=== PATIENT | female | born 1950 | race Caucasian/White ===

== ENCOUNTER 2021-09-24 14:48 | Inpatient (IN) | payer MEDICARE, OTHER ==
[~2021-09-24] VITALS: Ht 160 cm; Wt 100.2 kg
--- NOTE | 2021-09-24 15:05 | NUR ---
IV LINE IS ESTABLISHED, BLOOD SPECIMEN COLLECTED AND SENT TO THE LAB. THE LINE IS SALINE LOCKED.
[2021-09-24] MEDS ORDERED: LOSA25TA27 PO (15:10)
[2021-09-24] MEDS ORDERED: CITA20TA16 PO (15:10)
[2021-09-24] MEDS ORDERED: AMLO-212 PO (15:10)
[2021-09-24] MEDS ORDERED: DOCU-141 PO (15:10)
[2021-09-24] MEDS ORDERED: DULO30CA2 PO (15:10)
[2021-09-24] MEDS ORDERED: TEMA15CA PO (15:10)
[2021-09-24] MEDS ORDERED: ATOR10TA PO (15:10)
[2021-09-24] MEDS ORDERED: HYDR-4209 PO (15:10)
--- NOTE | 2021-09-24 15:11 | NUR ---
DR BOYCE AT THE BEDSIDE
[2021-09-24] MEDS ORDERED: CLOB15OI3 TP (15:12)
[2021-09-24] MEDS ORDERED: IBUP-1955 PO (15:12)
[2021-09-24] MEDS ORDERED: HYDR50TA61 PO (15:12)
[2021-09-24] MEDS ORDERED: ONDANSETRON HCL/PF 4 MG/2 ML VIAL ONE (15:19)
[2021-09-24] MEDS ORDERED: MORPHINE SULFATE INJ 4 MG/ML DISP.SYRIN ONE (15:19)
--- NOTE | 2021-09-24 15:28 | NUR ---
X-RAY AT THE BEDSIDE
[2021-09-24] MEDS ORDERED: ONDANSETRON HCL/PF - ER 4 MG/2 ML VIAL IV ONE (15:30)
[2021-09-24] MEDS ORDERED: IV NS 0.9% 1,000 ML IV ONE (15:30)
[2021-09-24] MEDS ORDERED: MORPHINE SULFATE INJ 2 MG/ML DISP.SYRIN IV ONE (15:30)
[2021-09-24 15:35] LABS: BASOPHILS % (AUTO) 0.2 % (0.0-2.0); HEMATOCRIT 29 % (33-45); HEMOGLOBIN 9.7 g/dL (11.5-14.8); LYMPHOCYTES # (AUTO) 0.5 K/uL (0.8-4.8); LYMPHOCYTES % (AUTO) 3.2 % (20.0-44.0); MEAN CORPUSCULAR HGB CONC 33 g/dl (31.0-36.0); MEAN CORPUSCULAR VOLUME 97 fL (82-100); MONOCYTES # (AUTO) 0.7 K/uL (0.1-1.30); MONOCYTES % (AUTO) 4.4 % (2.0-12.0); NEUTROPHILS # (AUTO) 15.6 K/uL (1.8-8.9); NEUTROPHILS % (AUTO) 92.2 % (43.0-81.0); PLATELET COUNT (AUTO) 214 K/uL (150-450); WHITE BLOOD COUNT (AUTO) 16.9 K/uL (4.3-11.0)
[2021-09-24 16:05] LABS: CALCIUM, SERUM 8.2 mg/dL (8.5-10.1); CARBON DIOXIDE 25 mmol/L (21-32); CHLORIDE 105 mmol/L (98-107); CREATININE 1.4 mg/dL (0.6-1.3); GLUCOSE 156 mg/dL (74-106); POTASSIUM 4.4 mmol/L (3.5-5.1); SODIUM SERUM 136 mmol/L (136-145); UREA NITROGEN, BLOOD 33 mg/dL (7-18)
[2021-09-24 16:17] LABS: ALANINE AMINOTRANSFERASE 36 U/L (12-78); ALBUMIN 2.8 g/dL (3.4-5.0); ALKALINE PHOSPHATASE 146 U/L (46-116); ASPARTATE AMINOTRANSFERASE 40 U/L (15-37); BILIRUBIN,TOTAL 0.3 mg/dL (0.2-1.0); TOTAL PROTEIN, SERUM 6.3 g/dL (6.4-8.2)
[2021-09-24 16:18] LABS: CREATINE KINASE, TOTAL 38 U/L (26-192)
[2021-09-24 16:28] LABS: BILIRUBIN,URINE NEGATIVE (NEGATIVE); COLOR,URINE DARK YELLOW (YELLOW); LEUKOCYTE ESTERASE ,URINE SMALL (NEGATIVE); NITRITE, URINE NEGATIVE (NEGATIVE); PROTEIN,URINE 100 mg/dl (NEGATIVE); UGLUCOSE NEGATIVE (NEGATIVE); UROBILINOGEN,URINE 0.2 EU/dL (0.2)
[2021-09-24] MEDS ORDERED: ONDANSETRON HCL/PF 4 MG/2 ML VIAL IVP PRN (16:30)
[2021-09-24] MEDS ORDERED: Medication Not On Formulary EA (Hydroxyzine Hcl 50 MG) PO PRN (16:30)
[2021-09-24] MEDS ORDERED: MAG HYDROX/AL HYDROX/SIMETH 30 ML UDC PO PRN (16:30)
[2021-09-24 16:44] LABS: BACTERIA,URINE Many /HPF (None Seen); RBC,URINE 0-2 /HPF (0-2); SQUAMOUS EPITHELIAL CELL,UR Few /HPF (None Seen)
[2021-09-24] MEDS ORDERED: Z GUARD REMEDY 4 OZ OINT TP PRN (17:00)
--- NOTE | 2021-09-24 17:22 | NUR ---
ROOM 104
--- NOTE | 2021-09-24 17:54 | NUR ---
RECEIVED PATIENT FROM ER,AWAKE ALERT NO ACUTE DISTRESS,WILL ENDORSE TO NIGHT RN FOR CONTINUITY OF CARE AND ADMISSION. Addendum: 09/24/21 at 1924 by SANDEEP HOFFMAN RN ADDENDUM VS: BP 165/52, TEMP 99.3, AZ 92, O2 SAT 94%, RR 18 WT 220 LBS.
[2021-09-24 18:00] VITALS: BP 165/52
[2021-09-24 18:04] VITALS: BP 165/74
[2021-09-24] MEDS: CITALOPRAM HYDROBROMIDE 20 MG TABLET PO SCH (18:22)
[2021-09-24] MEDS: IV D5/0.45 NACL 1,000 ML IV PRN (18:26)
[2021-09-24] MEDS: ENOXAPARIN SODIUM 40 MG/0.4 ML DISP.SYRIN SQ SCH (18:26)
--- NOTE | 2021-09-24 19:30 | NUR ---
MS RN NOTE RECEIVED ENDORSEMENT FROM AM NURSE SANDEEP PT AWAKE ON BED A/O X3, ON RA TOLERATING WELL, CURRENTLY SATING AT 96%, NOTED WITH R HAND #20g RUNNING D5 1/2 NS @ 75 ML/HR, INFUSING WELL, ON TELEMONITORING CURRENTLY READING SR AT 87 BPM, PT COMPLAINING OF GENERALIZED PAIN, WILL CHECK THE CHART FOR PRN PAIN MEDS AVAILABLE AT THIS TIME, SAFETY MEASURES IN PLACE, CALL LIGHT WITHIN REACH, BED IN LOWEST AND LOCKED POSITION, WILL MONITOR CLOSELY THROUGHOUT THE SHIFT.
--- NOTE | 2021-09-24 19:35 | NUR ---
RN NOTE CALLED TO [place] IN REGARDS TO THE COMPATIBILITY OF INFUSING D5 1/2 NS TO ZITHROMAX 500 MG IV, SHE SAID OKAY TO INFUSED ALTOGETHER. WILL CONT TO MONITOR.
[2021-09-24] MEDS: ZITHROMAX 500 MG/250 ML D5W IV SCH ×2 (19:36)
--- NOTE | 2021-09-24 19:45 | NUR ---
RN NOTE PT GIVEN NORCO PRN MEDS FOR PAIN. PT RATED 9/10 FROM PAIN SCALE. ABX IV HANGED ORDERED, COMFORT MEASURES PROVIDED, WILL CONT TO MONITOR.
[2021-09-24] MEDS: HYDROCODONE/APAP 5/325MG TABLET PO PRN (19:54)
[2021-09-24] MEDS ORDERED: CEFTRIAXONE 1 G in IV D5W 50 ML IV SCH (20:00)
[2021-09-24 22:00] VITALS: BP 151/69
[2021-09-24] MEDS ORDERED: ZOLPIDEM TARTRATE 5 MG TABLET PO PRN (22:00)
[2021-09-24] MEDS ORDERED: MAGNESIUM HYDROXIDE 30 ML UDC PO PRN (22:00)
[2021-09-24] MEDS: ATORVASTATIN 10 MG TABLET PO SCH (22:08)
[2021-09-24] MEDS: TEMAZEPAM 15 MG CAPSULE PO SCH (22:08)
[2021-09-24] MEDS: LOSARTAN POTASSIUM 25 MG TABLET PO SCH (22:09)
--- NOTE | 2021-09-25 01:30 | NUR ---
RN NOTE PT NOTED WITH LOW GRADE FEVER AT 100.4. COOLING MEASURES DONE, TYLENOL GIVEN PRN ORDER. KEPT DRY AND CLEAN, WILL CONT TO MONITOR.
[2021-09-25] MEDS: ACETAMINOPHEN 325 MG TABLET PO PRN ×2 (01:34→12:40)
--- NOTE | 2021-09-25 02:00 | NUR ---
RN NOTE RECHECKED TEMPERATURE AT 99.3. ALL NEEDS ATTENDED, WILL CONT TO MONITOR
[2021-09-25 06:00] VITALS: BP 110/53
[2021-09-25 06:03] LABS: BASOPHILS % (AUTO) 0.2 % (0.0-2.0); EOSINOPHILS % (AUTO) 0.1 % (0.0-6.0); HEMATOCRIT 27 % (33-45); HEMOGLOBIN 9.1 g/dL (11.5-14.8); LYMPHOCYTES # (AUTO) 0.7 K/uL (0.8-4.8); LYMPHOCYTES % (AUTO) 7.1 % (20.0-44.0); MEAN CORPUSCULAR HGB CONC 34 g/dl (31.0-36.0); MEAN CORPUSCULAR VOLUME 97 fL (82-100); MONOCYTES # (AUTO) 0.7 K/uL (0.1-1.30); NEUTROPHILS # (AUTO) 8.7 K/uL (1.8-8.9); NEUTROPHILS % (AUTO) 85.6 % (43.0-81.0); PLATELET COUNT (AUTO) 168 K/uL (150-450); RED BLOOD CELL COUNT(AUTO) 2.76 MIL/uL (4.0-5.2); WHITE BLOOD COUNT (AUTO) 10.1 K/uL (4.3-11.0)
[2021-09-25 06:24] LABS: CALCIUM, SERUM 8.3 mg/dL (8.5-10.1); CARBON DIOXIDE 27 mmol/L (21-32); CHLORIDE 105 mmol/L (98-107); CREATININE 1.3 mg/dL (0.6-1.3); GLUCOSE 157 mg/dL (74-106); MAGNESIUM 1.9 mg/dL (1.8-2.4); PHOSPHORUS 2.9 mg/dL (2.5-4.9); POTASSIUM 4.2 mmol/L (3.5-5.1); SODIUM SERUM 137 mmol/L (136-145); UREA NITROGEN, BLOOD 30 mg/dL (7-18)
--- NOTE | 2021-09-25 06:39 | NUR ---
MS RN NOTE PT AWAKE ON BED A/O X3, ON RA TOLERATING WELL, CURRENTLY SATING AT 95%, NOTED WITH R HAND #20g RUNNING D5 1/2 NS @ 75 ML/HR, INFUSING WELL, INITIAL PHYSICAL ASSESSMENT DONE WITH SKIN INTACT, ALL DUE MEDS GIVEN, COOLING MEASURES DONE, SAFETY PRECAUTIONS IN PLACE, CALL LIGHT WITHIN REACH, BED IN LOWEST AND LOCKED POSITION, WILL ENDORSE TO AM SHIFT FOR LEEANN.
--- NOTE | 2021-09-25 07:25 | NUR ---
RN OPENING NOTES RECEIVED PATIENT IN BED WITH EYES CLOSED, ABLE TO BE WAKEN. A/O X3. ON RA TOLERATING WELL WITH NO SOB NOTED. R HAND G#20 RUNNING D5 1/2 NS @ 75 ML/HR, INFUSING WELL. NO COMPLAINTS AT THIS TIME. SAFETY PRECAUTIONS IN PLACE, CALL LIGHT WITHIN REACH, BED IN LOWEST AND LOCKED POSITION, WILL CONTINUE TO MONITOR
[2021-09-25] MEDS: CEFTRIAXONE 1 G in IV D5W 50 ML IV SCH (08:50)
[2021-09-25] MEDS: AMLODIPINE BESYLATE 5 MG TABLET PO SCH (08:50)
[2021-09-25] MEDS: PANTOPRAZOLE 40 MG TABLET.DR PO SCH (08:50)
[2021-09-25] MEDS: DULOXETINE HCL 30 MG CAPSULE.DR PO SCH (08:50)
[2021-09-25] MEDS: DOCUSATE SODIUM 250 MG CAPSULE PO SCH (08:50)
[2021-09-25] MEDS ORDERED: AZITHROMYCIN 500 MG in IV D5W 250 ML IV SCH (09:00)
[2021-09-25] MEDS ORDERED: CEFTRIAXONE 1 G VIAL IM SCH (09:00)
[2021-09-25] MEDS: IV D5/0.45 NACL 1,000 ML IV PRN (12:16)
[2021-09-25] MEDS: ONDANSETRON HCL/PF 4 MG/2 ML VIAL IV PRN ×2 (12:29→20:12)
--- NOTE | 2021-09-25 12:41 | NUR ---
RN NOTES PATIENT TEMP 100.8 AXILLARY. COOLING MEASURES IN PLACE. COOL WASH CLOTHES AND MINIMAL LAYERS. ACETAMINOPHEN GIVEN. WILL MONITOR TEMP
[2021-09-25 14:00] VITALS: BP 139/55
[2021-09-25] MEDS: ENOXAPARIN SODIUM 40 MG/0.4 ML DISP.SYRIN SQ SCH (17:56)
[2021-09-25] MEDS: CITALOPRAM HYDROBROMIDE 20 MG TABLET PO SCH (18:09)
--- NOTE | 2021-09-25 19:05 | NUR ---
RN NOTES PATIENT IN BED COMFORTABLE AT THIS TIME. ON RA WITH NO SOB NOTED. DENIES PAIN AT THIS TIME. SAFETY MEASURES IN PLACE. WILL ENDORSE TO WING SCORER NURSE FOR LEEANN
--- NOTE | 2021-09-25 19:20 | NUR ---
RN NOTES RECEIVED CARE OF PATIENT FROM AM NURSE. PATIENT IN BED, A/O X4, ABLE TO MAKE NEEDS KNOWN. PATIENT COMPLAINS OF GENERALIZED PAIN AND NAUSEA. NON-PHARMACOLOGIC PAIN MANAGEMENT INEFFECTIVE. WILL ADMINISTER MORPHINE PRN AND ZOFRAN PRN FOR PAIN AND NAUSEA. PATIENT ON ROOM AIR, O2 SAT 97%, NO SOB NOTED. PATIENT NOTED WITH IV ACCESS ON R HAND #20 RUNNING WITH D51/2 NS AT 75 ML/HR, IV ACCESS PATENT. NO SIGNIFICANT FINDINGS UPON INITIAL NURSING ASSESSMENTS. SAFETY PRECAUTIONS IN PLACE, CALL LIGHT WITHIN REACH, BED IN LOWEST AND LOCKED POSITION, WILL CONTINUE TO MONITOR.
[2021-09-25] MEDS: ZITHROMAX 500 MG/250 ML D5W IV SCH ×2 (20:10)
[2021-09-25] MEDS: MORPHINE SULFATE INJ 2 MG/ML DISP.SYRIN IV PRN (20:12)
[2021-09-25] MEDS: TEMAZEPAM 15 MG CAPSULE PO SCH (21:16)
[2021-09-25] MEDS: ATORVASTATIN 10 MG TABLET PO SCH (21:16)
[2021-09-25] MEDS: LOSARTAN POTASSIUM 25 MG TABLET PO SCH (21:17)
[2021-09-25 22:00] VITALS: BP 167/22
[2021-09-26 04:00] VITALS: BP 138/98
[2021-09-26] MEDS: MORPHINE SULFATE INJ 2 MG/ML DISP.SYRIN IV PRN ×3 (04:33→21:09)
[2021-09-26] MEDS: ONDANSETRON HCL/PF 4 MG/2 ML VIAL IV PRN ×2 (04:38→14:30)
[2021-09-26 05:57] LABS: BASOPHILS % (AUTO) 0.3 % (0.0-2.0); EOSINOPHILS % (AUTO) 0.4 % (0.0-6.0); HEMATOCRIT 26 % (33-45); HEMOGLOBIN 9.2 g/dL (11.5-14.8); LYMPHOCYTES # (AUTO) 1.4 K/uL (0.8-4.8); LYMPHOCYTES % (AUTO) 17.7 % (20.0-44.0); MEAN CORPUSCULAR HGB CONC 35 g/dl (31.0-36.0); MEAN CORPUSCULAR VOLUME 96 fL (82-100); MONOCYTES # (AUTO) 0.7 K/uL (0.1-1.30); MONOCYTES % (AUTO) 9.4 % (2.0-12.0); NEUTROPHILS # (AUTO) 5.6 K/uL (1.8-8.9); NEUTROPHILS % (AUTO) 72.2 % (43.0-81.0); PLATELET COUNT (AUTO) 162 K/uL (150-450); RED BLOOD CELL COUNT(AUTO) 2.73 MIL/uL (4.0-5.2); WHITE BLOOD COUNT (AUTO) 7.7 K/uL (4.3-11.0)
--- NOTE | 2021-09-26 06:19 | NUR ---
RN CLOSING NOTES WILL ENDORSE CARE OF PATIENT TO AM NURSE. NO SIGNIFICANT FINDINGS UPON ALL NURSING ASSESSMENTS. ALL PATIENT NEEDS MET THOUGHT SHIFT. PAIN MANAGED. SAFETY MEASURES KEPT IN PLACE. WILL ENDORSE TO AM NURSE FOR LEEANN.
[2021-09-26 07:01] LABS: CALCIUM, SERUM 8.1 mg/dL (8.5-10.1); CARBON DIOXIDE 26 mmol/L (21-32); CHLORIDE 104 mmol/L (98-107); CREATININE 1.1 mg/dL (0.6-1.3); GLUCOSE 124 mg/dL (74-106); MAGNESIUM 1.8 mg/dL (1.8-2.4); POTASSIUM 3.9 mmol/L (3.5-5.1); SODIUM SERUM 136 mmol/L (136-145); UREA NITROGEN, BLOOD 22 mg/dL (7-18)
--- NOTE | 2021-09-26 07:30 | NUR ---
RN OPENING NOTE PATIENT IS IN BED AWAKE, ALERT, ORIENTED X4. ON ROOM AIR WITH OXYGEN SATURATION AT 97%. WITH RIGHT HAND SALINE LOCK GAUGE 20,INTACT AND PATENT. DENIES PAIN OR NAUSEA AND NOT IN ANY FORM OF DISTRESS. BED IS LOCKED IN LOWEST POSITION, 3 SIDE RAILS UP, CALL LIGHT WITHIN REACH. WILL CONTINUE TO MONITOR THROUGHOUT SHIFT.
[2021-09-26] MEDS: PANTOPRAZOLE 40 MG TABLET.DR PO SCH (08:31)
[2021-09-26] MEDS: DULOXETINE HCL 30 MG CAPSULE.DR PO SCH (08:31)
[2021-09-26] MEDS: AMLODIPINE BESYLATE 5 MG TABLET PO SCH (08:32)
[2021-09-26] MEDS: DOCUSATE SODIUM 250 MG CAPSULE PO SCH (08:32)
[2021-09-26] MEDS: CEFTRIAXONE 1 G in IV D5W 50 ML IV SCH (08:33)
[2021-09-26 12:00] VITALS: BP 140/57
[2021-09-26] MEDS: CITALOPRAM HYDROBROMIDE 20 MG TABLET PO SCH (17:07)
[2021-09-26] MEDS: ENOXAPARIN SODIUM 40 MG/0.4 ML DISP.SYRIN SQ SCH (17:09)
--- NOTE | 2021-09-26 18:48 | NUR ---
RN CLOSING NOTE PATIENT IS IN BED AWAKE, ALERT, ORIENTED X4. ON ROOM AIR WITH OXYGEN SATURATION AT 97%. WITH RIGHT HAND SALINE LOCK GAUGE 20,INTACT AND PATENT. VERBALIZES RELIEF FROM NAUSEA AND PAIN AFTER GIVING PRN MEDS FOR NAUSEA AND PAIN. NOT IN ANY FORM OF DISTRESS. BED IS LOCKED IN LOWEST POSITION, 3 SIDE RAILS UP, CALL LIGHT WITHIN REACH. WILL ENDORSE TO BOAT PATCHER PLASTIC NURSE..
--- NOTE | 2021-09-26 19:30 | NUR ---
RN OPENING NOTE RECEIVED PATIENT IN BED, A/O X 4, ABLE TO MAKE NEEDS KNOWN. ON ROOM AIR, TOLERATING WELL, O2 SAT 97%, NO SOB NOTED. NO S/SX OF ACUTE DISTRESS NOTED AT THIS TIME. NOTED WITH IV ACCESS ON R HAND #20g RUNNING NS TKO, PATENT AND INTACT. NO SIGNIFICANT FINDINGS UPON INITIAL NURSING ASSESSMENTS. ALL SAFETY PRECAUTIONS IN PLACE, BED LOCKED, IN LOWEST POSITION, CALL LIGHT WITHIN REACH. WILL CONTINUE TO MONITOR FOR ANY CHANGES.
[2021-09-26 20:00] VITALS: BP 156/62
[2021-09-26] MEDS: ZITHROMAX 500 MG/250 ML D5W IV SCH ×2 (20:13)
[2021-09-26] MEDS: ATORVASTATIN 10 MG TABLET PO SCH (21:02)
[2021-09-26] MEDS: TEMAZEPAM 15 MG CAPSULE PO SCH (21:02)
[2021-09-26] MEDS: LOSARTAN POTASSIUM 25 MG TABLET PO SCH (21:03)
[2021-09-26] MEDS: MEROPENEM 1 G in IV NS 0.9% 100 ML IV SCH (21:03)
[2021-09-27 04:00] VITALS: BP 141/52
--- NOTE | 2021-09-27 06:25 | NUR ---
RN CLOSING NOTES NO SIGNIFICANT CHANGES THROUGHOUT THE SHIFT. PT REMAINED STABLE AFTER ALL NURSING INTERVENTIONS. ALL NEEDS MET. ALL DUE MEDS GIVEN. KEPT PT CLEAN AND DRY. ALL VS WNL. PT IS AFEBRILE. ALL SAFETY MEASURES IMPLEMENTED: BED LOCKED IN LOWEST POSITION. BED ALARM ON. CALL LIGHT WITHIN REACH. .WILL ENDORSE CARE OF PATIENT TO AM NURSE FOR LEEANN.
--- NOTE | 2021-09-27 07:37 | NUR ---
RN OPENING NOTE RECEIVED PATIENT AWAKE IN BED . PATIENT IS ALERT, ORIENTED X3-4. ON ROOM AIR WITH OXYGEN SATURATION AT 94%. NO PAIN NOTED. NO SOB NOTED. NO DISTRESS NOTED. RIGHT HAND SALINE LOCK GAUGE 20,INTACT AND PATENT. DENIES NAUSEA . ALL SAFETY MEASURES IN PLACE.BED IS LOCKED IN LOWEST POSITION, 3 SIDE RAILS UP, CALL LIGHT AND TABLE WITHIN REACH. WILL CONTINUE TO MONITOR THROUGHOUT SHIFT.
[2021-09-27] MEDS: PANTOPRAZOLE 40 MG TABLET.DR PO SCH (07:51)
[2021-09-27] MEDS: DOCUSATE SODIUM 250 MG CAPSULE PO SCH (08:30)
[2021-09-27] MEDS: DULOXETINE HCL 30 MG CAPSULE.DR PO SCH (08:31)
[2021-09-27] MEDS: AMLODIPINE BESYLATE 5 MG TABLET PO SCH (08:31)
[2021-09-27] MEDS: MEROPENEM 1 G in IV NS 0.9% 100 ML IV SCH ×2 (09:43→21:05)
[2021-09-27] MEDS: MORPHINE SULFATE INJ 2 MG/ML DISP.SYRIN IV PRN ×2 (11:50→18:19)
[2021-09-27 12:00] VITALS: BP 160/65
[2021-09-27] MEDS: ENOXAPARIN SODIUM 40 MG/0.4 ML DISP.SYRIN SQ SCH (16:20)
[2021-09-27] MEDS: CITALOPRAM HYDROBROMIDE 20 MG TABLET PO SCH (17:33)
--- NOTE | 2021-09-27 18:52 | NUR ---
RN CLOSING NOTE PATIENT AWAKE IN BED . PATIENT IS ALERT, ORIENTED X3-4. ON ROOM AIR WITH OXYGEN SATURATION AT 95%. NO PAIN NOTED. NO SOB NOTED. NO DISTRESS NOTED. RIGHT HAND SALINE LOCK GAUGE 20,INTACT AND PATENT. DENIES NAUSEA . ALL DUE MEDS GIVEN ORDERED.ALL SAFETY MEASURES IN PLACE.BED IS LOCKED IN LOWEST POSITION, 3 SIDE RAILS UP, CALL LIGHT AND TABLE WITHIN REACH. WILL ENDORSE FOR LEEANN..
[2021-09-27 20:00] VITALS: BP 131/50
--- NOTE | 2021-09-27 20:00 | NUR ---
MS RN NOTES RECEIVED PTS IN BED AWAKE ALERT X4 ABLE TO MAKE NEEDS KNOWN. V/S STABLE AFEBRILE ON R/A SATING 97%PATIENT COMPLAINS OF GENERALIZED PAIN IBUPROFEN ORDERED GIVEN WITH EFFECT .NO SOB NO DISTRESS NOTED PATIENT ON ROOM AIR, O2 SAT 97%, NO SOB NOTED. IV ACCESS ON REINSERTED L HAND #22 INTACT AND PATENT ACCESS PATENT. NO SIGNIFICANT FINDINGS UPON INITIAL NURSING ASSESSMENTS. SAFETY PRECAUTIONS IN PLACE, CALL LIGHT WITHIN REACH, BED IN LOWEST AND LOCKED POSITION, WILL CONTINUE TO MONITOR. ALL DUE MEDS GIVEN INCLUDING IV ANTIBIOTIC WIT NO SIDE EFFECT NOTED.
[2021-09-27] MEDS: ZITHROMAX 500 MG/250 ML D5W IV SCH ×2 (20:16)
[2021-09-27] MEDS: IBUPROFEN 600 MG TABLET PO PRN (20:45)
[2021-09-27] MEDS: LOSARTAN POTASSIUM 25 MG TABLET PO SCH (21:06)
[2021-09-27] MEDS: ATORVASTATIN 10 MG TABLET PO SCH (21:06)
[2021-09-27] MEDS: TEMAZEPAM 15 MG CAPSULE PO SCH (21:06)
[2021-09-28] MEDS: HYDROCODONE/APAP 5/325MG TABLET PO PRN ×2 (00:32→20:34)
[2021-09-28] MEDS: hydrOXYzine 10 MG TABLET PO PRN ×2 (00:33→16:05)
[2021-09-28 04:00] VITALS: BP 142/55
[2021-09-28 05:48] LABS: BASOPHILS % (AUTO) 0.5 % (0.0-2.0); EOSINOPHILS % (AUTO) 6.8 % (0.0-6.0); HEMATOCRIT 26 % (33-45); HEMOGLOBIN 8.7 g/dL (11.5-14.8); LYMPHOCYTES % (AUTO) 36.1 % (20.0-44.0); MEAN CORPUSCULAR HGB CONC 34 g/dl (31.0-36.0); MEAN CORPUSCULAR VOLUME 97 fL (82-100); MONOCYTES # (AUTO) 0.7 K/uL (0.1-1.30); MONOCYTES % (AUTO) 11.9 % (2.0-12.0); NEUTROPHILS # (AUTO) 2.5 K/uL (1.8-8.9); NEUTROPHILS % (AUTO) 44.7 % (43.0-81.0); PLATELET COUNT (AUTO) 197 K/uL (150-450); RED BLOOD CELL COUNT(AUTO) 2.63 MIL/uL (4.0-5.2); WHITE BLOOD COUNT (AUTO) 5.5 K/uL (4.3-11.0)
[2021-09-28 05:57] LABS: CARBON DIOXIDE 31 mmol/L (21-32); CHLORIDE 108 mmol/L (98-107); CREATININE 1.2 mg/dL (0.6-1.3); GLUCOSE 95 mg/dL (74-106); POTASSIUM 3.9 mmol/L (3.5-5.1); SODIUM SERUM 142 mmol/L (136-145); UREA NITROGEN, BLOOD 17 mg/dL (7-18)
--- NOTE | 2021-09-28 07:29 | NUR ---
ms rnnotes endorse to rn day shift ham for continuity of care
--- NOTE | 2021-09-28 07:57 | NUR ---
RN NOTE RECEIVED PT ASLEEP IN BED. ALERT AND RESPONSIVE. IN ROOM AIR. NOT IN DISTRESS. IV ACCESS ON L HAND G 22 WITH NO FLUIDS RUNNING. SAFETY MEASURES IN PLACE. WILL CONTINUE TO MONITOR.
[2021-09-28] MEDS: PANTOPRAZOLE 40 MG TABLET.DR PO SCH (08:48)
[2021-09-28] MEDS: MEROPENEM 1 G in IV NS 0.9% 100 ML IV SCH ×2 (08:48→22:04)
[2021-09-28] MEDS: DULOXETINE HCL 30 MG CAPSULE.DR PO SCH (08:49)
[2021-09-28] MEDS: DOCUSATE SODIUM 250 MG CAPSULE PO SCH (08:49)
[2021-09-28] MEDS: AMLODIPINE BESYLATE 5 MG TABLET PO SCH (08:49)
[2021-09-28 12:00] VITALS: BP 140/62
[2021-09-28] MEDS: IBUPROFEN 600 MG TABLET PO PRN (15:58)
[2021-09-28] MEDS ORDERED: ENSURE ENLIVE 237 ML LIQUID (VANILLA) PO SCH (17:00)
[2021-09-28] MEDS: CITALOPRAM HYDROBROMIDE 20 MG TABLET PO SCH (17:21)
[2021-09-28] MEDS: ENOXAPARIN SODIUM 40 MG/0.4 ML DISP.SYRIN SQ SCH (17:22)
[2021-09-28] MEDS: ENSURE ENLIVE CHOC 237 ML CAN PO SCH (17:22)
--- NOTE | 2021-09-28 18:44 | NUR ---
RN NOTE PT RESTING IN BED. AWAKE, ALERT AND RESPONSIVE. IN ROOM AIR. NOT IN DISTRESS. IV ACCESS ON L HAND G 22 WITH NO FLUIDS RUNNING. SAFETY MEASURES IN PLACE. DUE MEDS TAKEN. NEEDS ATTENDED. AM CARE DONE. WILL CONTINUE TO MONITOR AND ENDORSE TO NEXT SHIFT.
[2021-09-28 20:00] VITALS: BP 145/61
--- NOTE | 2021-09-28 20:01 | NUR ---
MS FERMIN Opening Note Pt received in bed awake, A&O x4, calm, cooperative, able to make needs known. Pt on RA with O2sat currently at 95%; no s/s of resp distress, no SOB, non-labored and equal breathing; appears comfortable. VSS, will monitor as needed. Pt noted to have left hand IV access 22G with NS TKO at 10 ml/hr; no s/s of infiltration, flushes easily. Bed in lowest position, call light within reach, side rails up x3. Will continue to monitor throughout the night. Addendum: 09/29/21 at 0221 by PRINCESS TONY FERMIN NS TKO at 5 ml/hr
[2021-09-28] MEDS: ZITHROMAX 500 MG/250 ML D5W IV SCH ×2 (20:34)
--- NOTE | 2021-09-28 20:42 | NUR ---
RN Note Pt complains of 8/10 pain on her legs and back that's described as sharp. Pt requests for [place]. Pt given 1 tablet of [place] 5/325 mg. Will monitor for effectiveness.
[2021-09-28] MEDS: ATORVASTATIN 10 MG TABLET PO SCH (22:04)
[2021-09-28] MEDS: TEMAZEPAM 15 MG CAPSULE PO SCH (22:05)
[2021-09-28] MEDS: LOSARTAN POTASSIUM 25 MG TABLET PO SCH (22:05)
[2021-09-29] MEDS: IBUPROFEN 600 MG TABLET PO PRN ×2 (03:11→09:44)
--- NOTE | 2021-09-29 03:11 | NUR ---
RN Note Pt reports of a headache that's rated as a 7/10; pain is described as throbbing. Pt given Ibuprofen 600 mg. Will monitor for effectiveness.
--- NOTE | 2021-09-29 03:12 | NUR ---
RN Note Pt's left hand 22G IV access d/c'd. New IV access established 20G on left wrist with NS TKO running at 5 ml/hr.
[2021-09-29 04:00] VITALS: BP 147/47
--- NOTE | 2021-09-29 06:54 | NUR ---
MS RN Closing Note Note Pt in bed asleep; A&O x4, calm, cooperative, able to make needs known. Pt slept well throughout the night. Pt remains on RA with O2sat ranging from 95%-96%; no s/s of resp distress, no SOB, non-labored and equal breathing; appears comfortable. VSS throughout night; no significant findings. Left hand IV access 22G d/c'd; new IV access established on left wrist 20G with NS TKO at 5 ml/hr; no s/s of infiltration, flushes easily. All due meds and fluids given throughout the night. Bed in lowest position, call light within reach, side rails up x3. Will endorse to dayshift nurse to continue care.
[2021-09-29] MEDS: MEROPENEM 1 G in IV NS 0.9% 100 ML IV SCH ×2 (08:28→22:07)
[2021-09-29] MEDS: DOCUSATE SODIUM 250 MG CAPSULE PO SCH (08:28)
[2021-09-29] MEDS: DULOXETINE HCL 30 MG CAPSULE.DR PO SCH (08:29)
[2021-09-29] MEDS: PANTOPRAZOLE 40 MG TABLET.DR PO SCH (08:29)
[2021-09-29] MEDS: AMLODIPINE BESYLATE 5 MG TABLET PO SCH (08:29)
[2021-09-29] MEDS: ENSURE ENLIVE CHOC 237 ML CAN PO SCH ×2 (08:38→17:09)
[2021-09-29] MEDS: hydrOXYzine 10 MG TABLET PO PRN (09:44)
--- NOTE | 2021-09-29 11:14 | NUR ---
RN NOTE RECEIVED PT ASLEEP IN BED. ALERT AND RESPONSIVE. IN ROOM AIR. NOT IN DISTRESS. IV ACCESS ON L WRIST G 22 WITH NO FLUIDS RUNNING. SAFETY MEASURES IN PLACE. WILL CONTINUE TO MONITOR.
[2021-09-29 12:00] VITALS: BP 150/61
[2021-09-29] MEDS: ENOXAPARIN SODIUM 40 MG/0.4 ML DISP.SYRIN SQ SCH (17:08)
[2021-09-29] MEDS: CITALOPRAM HYDROBROMIDE 20 MG TABLET PO SCH (17:08)
--- NOTE | 2021-09-29 19:16 | NUR ---
RN NOTE PT RESTING IN BED. AWAKE, ALERT AND RESPONSIVE. IN ROOM AIR. NOT IN DISTRESS. IV ACCESS ON L HAND G 22 WITH NO FLUIDS RUNNING. SAFETY MEASURES IN PLACE. DUE MEDS TAKEN. NEEDS ATTENDED. AM/PM CARE DONE. WILL CONTINUE TO MONITOR AND ENDORSE TO NEXT SHIFT.
[2021-09-29 20:00] VITALS: BP 150/66
--- NOTE | 2021-09-29 21:30 | NUR ---
MS RN Opening Note Pt in bed awake, A&O x4, calm, cooperative. Pt on RA with O2sat in high 90s; no s/s of resp distress, no SOB, non-labored and equal breathing; appears comfortable. VSS at the moment, will monitor as needed. IV access 20G on left wrist with NS TKO at 10 ml/hr; no s/s of infiltration, flushes easily. Bed in lowest position, call light within reach, side rails up x3. Will continue to monitor throughout the night.
[2021-09-29] MEDS: ATORVASTATIN 10 MG TABLET PO SCH (22:07)
[2021-09-29] MEDS: LOSARTAN POTASSIUM 25 MG TABLET PO SCH (22:07)
[2021-09-29] MEDS: TEMAZEPAM 15 MG CAPSULE PO SCH (22:07)
[2021-09-30] MEDS: IBUPROFEN 600 MG TABLET PO PRN ×2 (02:16→22:39)
--- NOTE | 2021-09-30 02:17 | NUR ---
RN Note Pt complains of 6-7/10 joint pain that's described as aching; pt requests for Ibuprofen. Pt administered ibuprofen 600 mg. Will monitor for effectiveness.
[2021-09-30 04:00] VITALS: BP 147/59
--- NOTE | 2021-09-30 07:15 | NUR ---
MS RN Opening Note Pt in bed awake, A&O x4, calm, cooperative. Pt on RA with O2sat in high 90s; no s/s of resp distress, no SOB, non-labored and equal breathing; appears comfortable. VS at the moment, will monitor as needed. IV access 20G on left wrist with NS TKO at 10 ml/hr; no s/s of infiltration, flushes easily. Bed in lowest position, call light within reach, side rails up x3. Will continue to monitor throughout the night
--- NOTE | 2021-09-30 07:17 | NUR ---
MS RN Closing Note Note Pt in bed asleep; slept well throughout night; A&O x4, calm, cooperative. Pt remains on RA with O2sat ranging from 92%-94%; no s/s of resp distress, no SOB, non-labored and equal breathing; appears comfortable. VSS throughout night; no changes to pt's condition. left wrist 20G with NS TKO at 5 ml/hr; no s/s of infiltration, flushes easily. All due meds and fluids given throughout the night. Bed in lowest position, call light within reach, side rails up x3. Will endorse to dayshift nurse to continue care.
[2021-09-30] MEDS: PANTOPRAZOLE 40 MG TABLET.DR PO SCH (08:13)
[2021-09-30] MEDS: AMLODIPINE BESYLATE 5 MG TABLET PO SCH (09:38)
[2021-09-30] MEDS: DOCUSATE SODIUM 250 MG CAPSULE PO SCH (09:38)
[2021-09-30] MEDS: DULOXETINE HCL 30 MG CAPSULE.DR PO SCH (09:39)
[2021-09-30] MEDS: MEROPENEM 1 G in IV NS 0.9% 100 ML IV SCH ×2 (09:46→22:45)
[2021-09-30] MEDS: ENSURE ENLIVE CHOC 237 ML CAN PO SCH ×2 (09:46→17:39)
--- NOTE | 2021-09-30 10:00 | NUR ---
RN notes Patient found with IV catheter removed from the site
--- NOTE | 2021-09-30 12:00 | NUR ---
RN note New line started 22 G started on Left hand, patient and flushes with easy
[2021-09-30 16:00] VITALS: BP 152/56
[2021-09-30] MEDS: ENOXAPARIN SODIUM 40 MG/0.4 ML DISP.SYRIN SQ SCH (17:39)
[2021-09-30] MEDS: CITALOPRAM HYDROBROMIDE 20 MG TABLET PO SCH (17:42)
--- NOTE | 2021-09-30 19:14 | NUR ---
RN opening notes Pt received bed awake, A&O x4, calm and following directions. Pt on RA with O2sat in high 90s; no s/s of resp distress breathing is regular and non labored; appears comfortable. VSS at the moment, will monitor as needed. IV access 20G on left wrist with NS TKO at 10 ml/hr; no s/s of infiltration, flushes easily. Bed in lowest position, call light within reach, side rails up x3. Will continue to monitor throughout the night.
--- NOTE | 2021-09-30 19:23 | NUR ---
RN closing notes Pt in bed watching TV; A&O x4, calm, cooperative, able to make needs known. Pt was awake and active during the day. Pt remains on RA with O2sat ranging from 95%-96%; no s/s of resp distress, no SOB, non-labored and equal breathing; appears comfortable. VSS throughout night; no significant findings. Left hand IV access 22G started; no s/s of infiltration, flushes easily. All due meds and fluids given. Bed in lowest position, call light within reach, side rails up x3. Will endorse to dayshift nurse to continue care.
[2021-09-30 20:00] VITALS: BP 130/69
--- NOTE | 2021-09-30 20:00 | NUR ---
RECEIVED PATIENT AWSKE ALERT AND IN NO DISTRESS. CALL LIGHT IN REACD BED IN LOWEST POSITION SIDE RAILS UP. SALINE LOCK L HAND IS INTACT AND PATENT. PATIENT OFFERED NO COMPLAIN.
[2021-09-30] MEDS: LOSARTAN POTASSIUM 25 MG TABLET PO SCH (22:40)
[2021-09-30] MEDS: TEMAZEPAM 15 MG CAPSULE PO SCH (22:40)
[2021-09-30] MEDS: ATORVASTATIN 10 MG TABLET PO SCH (22:59)
[2021-10-01] VITALS: BP 130/69
--- NOTE | 2021-10-01 00:30 | NUR ---
MOTRIN ADMINISTERED FO C/O HEADACHE. WITH EFFECTIVENESS, PT IS ASLEEP .
--- NOTE | 2021-10-01 07:29 | NUR ---
RN OPENING NOTE RECEIVED PT IN BED AWAKE. A/O X4, ABLE TO MAKE NEEDS KNOWN. ON ROOM AIR, TOLERATING WELL. NOT IN ANY SIGN OF RESPIRATORY DISTRESS. IV ACCESS IN LEFT HAND INTACT AND PATENT. SAFETY MEASURES IN PLACE: BED AT LOWEST AND LOCKED POSITION, SIDE RAILS UPX2, CALL LIGHT WITHIN EASY REACH. WILL CONTINUE TO MONITOR PT.
[2021-10-01 08:00] VITALS: BP 155/55
[2021-10-01] MEDS: DULOXETINE HCL 30 MG CAPSULE.DR PO SCH (08:08)
[2021-10-01] MEDS: PANTOPRAZOLE 40 MG TABLET.DR PO SCH (08:09)
[2021-10-01] MEDS: ENSURE ENLIVE CHOC 237 ML CAN PO SCH ×2 (08:13→12:02)
[2021-10-01 08:15] VITALS: BP 155/55
[2021-10-01] MEDS: AMLODIPINE BESYLATE 5 MG TABLET PO SCH (08:15)
[2021-10-01] MEDS: MEROPENEM 1 G in IV NS 0.9% 100 ML IV SCH (09:40)
[2021-10-01] MEDS: DOCUSATE SODIUM 250 MG CAPSULE PO SCH (09:41)
--- NOTE | 2021-10-01 15:18 | NUR ---
HOMOGENIZER OPERATOR NOTES PT DISCHARGED TO [facility] IN STABLE CONDITION. PT A/O X4, ABLE TO MAKE NEEDS KNOWN. ON RA, TOLERATING WELL, WITH SPO2 AT 96%. BREATHING EVEN AND UNLABORED. NOT IN ANY SIGN OF RESPIRATORY DISTRESS. VITAL SIGNS TAKEN, STABLE, AND RECORDED. SKIN IS INTACT. NO SKN IMPAIREMENTS NOTED. ALL BELONGINGS ACCOUNTED FOR. ALL DISCHARGED INSTRUCTIONS AND HEALTH TEACHINGS PROVIDED TO PT AND PT VERBALIZED UNDERSTANDING AND SIGNED DISCHARGED DOCUMENTS. IV ACCESS IN LEFT HAND REMOVED WITH NO ACTIVE BLEEDING NOTED. DRY PRESSURE DRESSING APPLIED AT SITE. CALLED AND REPORT GIVEN EARLIER TO MAURICE FELDER OF [facility] AND STATED PT WILL BE IN ROOM 208. PT LEFT THE UNIT VIA GURNEY AT 1515. ACCOMPANIED BY 3 R&D ENGINEER. MD AND CHARGED NURSE AWARE OF DISCHARGED.
== END 2021-10-01 16:55 | DRG 193 ==
LOC: ER 14:55 → MEDSG1 17:39
PROVIDERS: ADMIT Legal Medicine; ATTEND Legal Medicine
DX: J15.9 Unspecified bacterial pneumonia (principal); N17.0 Acute kidney failure with tubular necrosis; N39.0 Urinary tract infection, site not specified; J98.11 Atelectasis; Z16.12 Extended spectrum beta lactamase (ESBL) resistance; J90 Pleural effusion, not elsewhere classified; R53.1 Weakness; M19.90 Unspecified osteoarthritis, unspecified site; E86.0 Dehydration; D63.8 Anemia in other chronic diseases classified elsewhere; E88.09 Other disorders of plasma-protein metabolism, not elsewhere classified; G89.4 Chronic pain syndrome; F03.90 Unspecified dementia, unspecified severity, without behavioral disturbance, psychotic disturbance, mood disturbance, and anxiety; I10 Essential (primary) hypertension; F32.A Depression, unspecified; E66.9 Obesity, unspecified; Z68.39 Body mass index [BMI] 39.0-39.9, adult; B96.1 Klebsiella pneumoniae [K. pneumoniae] as the cause of diseases classified elsewhere; Z20.822 Contact with and (suspected) exposure to COVID-19; Z87.81 Personal history of (healed) traumatic fracture
CPT/HCPCS: 36415; 71045-TC; 71250-TC; 80048-TC; 80053-TC; 81001; 82550-TC; 83735-TC; 83880; 84100-TC; 84484-TC; 85025-TC; 87081-TC; 87086-TC; 87186-TC; 94799-TC; 97116-TC; 97530-TC; C9803; G0378; J0456; J0696; J1650; J2185; J2270; J2405; J3490; J7030; J7042; J7050; J7060; Q0177

== ENCOUNTER 2022-08-02 12:52 | Inpatient (IN) | payer MEDICARE, OTHER ==
[~2022-08-02] VITALS: Ht 160 cm; Wt 101.9 kg
[~2022-08-02 12:52] MED LIST: AMLO-212 PO; ATOR10TA PO; CITA20TA16 PO; CLOB15OI3 TP; DOCU-141 PO; DULO30CA2 PO; HYDR-4209 PO; HYDR50TA61 PO; IBUP-1955 PO; LOSA25TA27 PO; TEMA15CA PO
--- NOTE | 2022-08-02 13:00 | NUR ---
ISAEL FROM [facility] FOR BILATERAL LEG PAIN AND EDEMA X 2 DAYS. PLACED IN BED, AAOX4, BREATHING UNLABORED SATURATING AT 98%RA
--- NOTE | 2022-08-02 13:25 | NUR ---
BLOOD SAMPLES COLLECTED
--- NOTE | 2022-08-02 13:28 | NUR ---
X-RAY TECH AT BEDSIDE
--- NOTE | 2022-08-02 13:34 | NUR ---
SWAB FOR COVID19 SENT TO LAB
[2022-08-02] MEDS ORDERED: OLAN5TAB3 PO (13:35)
[2022-08-02] MEDS ORDERED: ZOLP5TAB8 PO (13:35)
[2022-08-02 13:51] LABS: BASOPHILS % (AUTO) 0.8 % (0.0-2.0); EOSINOPHILS % (AUTO) 4.9 % (0.0-6.0); HEMATOCRIT 29 % (33-45); HEMOGLOBIN 9.4 g/dL (11.5-14.8); LYMPHOCYTES # (AUTO) 1.6 K/uL (0.8-4.8); LYMPHOCYTES % (AUTO) 27.3 % (20.0-44.0); MEAN CORPUSCULAR HGB CONC 32 g/dl (31.0-36.0); MEAN CORPUSCULAR VOLUME 100 fL (82-100); MONOCYTES # (AUTO) 0.5 K/uL (0.1-1.30); MONOCYTES % (AUTO) 9.2 % (2.0-12.0); NEUTROPHILS # (AUTO) 3.3 K/uL (1.8-8.9); NEUTROPHILS % (AUTO) 57.8 % (43.0-81.0); PLATELET COUNT (AUTO) 232 K/uL (150-450); RED BLOOD CELL COUNT(AUTO) 2.88 MIL/uL (4.0-5.2); WHITE BLOOD COUNT (AUTO) 5.7 K/uL (4.3-11.0)
--- NOTE | 2022-08-02 14:09 | NUR ---
MOVE SHEET SUBMITTED.
--- NOTE | 2022-08-02 14:10 | NUR ---
[facility] CALLED GLAZE SUPERVISOR PAGED.
[2022-08-02] MEDS ORDERED: FUROSEMIDE 20 MG/2 ML VIAL ONE (14:18)
[2022-08-02] MEDS ORDERED: FUROSEMIDE 20 MG/2 ML VIAL IV ONE (14:30)
[2022-08-02] MEDS ORDERED: ASPIRIN 325 MG TABLET PO ONE (14:30)
--- NOTE | 2022-08-02 15:20 | NUR ---
Randy murillo in [facility] - 08/02/22 at 1540 by RAMESH Patient discharged to home in stable condition. Written and verbal after care instructions given. Patient verbalizes understanding of instruction.
[2022-08-02 15:39] LABS: CALCIUM, SERUM 8.7 mg/dL (8.5-10.1); CARBON DIOXIDE 21 mmol/L (21-32); CHLORIDE 110 mmol/L (98-107); CREATININE 1.4 mg/dL (0.6-1.3); GLUCOSE 89 mg/dL (74-106); POTASSIUM 4.8 mmol/L (3.5-5.1); SODIUM SERUM 141 mmol/L (136-145); UREA NITROGEN, BLOOD 35 mg/dL (7-18)
[2022-08-02 15:44] LABS: ALANINE AMINOTRANSFERASE 16 U/L (12-78); ALBUMIN 3.5 g/dL (3.4-5.0); ALKALINE PHOSPHATASE 117 U/L (46-116); ASPARTATE AMINOTRANSFERASE 20 U/L (15-37); BILIRUBIN,DIRECT 0.1 mg/dL (0.0-0.2); BILIRUBIN,TOTAL 0.3 mg/dL (0.2-1.0); TOTAL PROTEIN, SERUM 7.2 g/dL (6.4-8.2)
[2022-08-02] MEDS ORDERED: ACETAMINOPHEN 325 MG TABLET PO ONE (17:00)
--- NOTE | 2022-08-02 17:05 | NUR ---
GOT BED 304-1 ADMITTING NOTIFIED.
--- NOTE | 2022-08-02 17:24 | NUR ---
REPORT GIVEN TO UBALDO FERMIN ROOM 304-1 FOR LEEANN
--- NOTE | 2022-08-02 17:45 | NUR ---
TOTAL URINE OUTPUT 2,500MLS.
[2022-08-02] MEDS ORDERED: ZOLPIDEM TARTRATE 5 MG TABLET PO PRN (18:00)
[2022-08-02] MEDS ORDERED: ONDANSETRON HCL/PF 4 MG/2 ML VIAL IVP PRN (18:00)
--- NOTE | 2022-08-02 18:25 | NUR ---
PATIENT TRANSFERED AND ADMITTED PER [facility]S [facility]OC[facility].
--- NOTE | 2022-08-02 19:30 | NUR ---
INSTRUCTOR NURSE OPENING NOTES RECEIVED PATIENT SLEEPING IN BED. EASILY AWAKENS TO VERBAL STIMULI. A/O X 4. NO S/S OF PAIN AT THIS TIME. ON ROOM AIR, BREATHING EVEN AND UNLABORED, NO DISTRESS OR SOB NOTED. IV ACCESS RIGHT WRIST #20G, INTACT, PATENT AND FLUSHING WELL. FALL AND SAFETY MEASURES IN PLACE WITH BED IN LOWEST LOCKED POSITION. SIDE RAILS UP X 2. BED ALARM ON. CALL LIGHT AND TABLE WITHIN EASY REACH. WILL CONTINUE WITH THE PLAN OF CARE AND CARRY OUT ACTIVE MD ORDERS.
[2022-08-02 20:00] VITALS: BP 134/56
[2022-08-02] MEDS: CLOBETASOL 0.05% OINT 30 GM TUBE TP SCH (20:47)
[2022-08-02] MEDS: CITALOPRAM HYDROBROMIDE 20 MG TABLET PO SCH (20:48)
[2022-08-02] MEDS: HYDROCODONE/APAP 5/325MG TABLET PO SCH (20:48)
--- NOTE | 2022-08-02 21:00 | NUR ---
RN NOTES PLACED PATIENT IN PUREWICK AND EXTERNAL INTAKE CLERK.
[2022-08-02] MEDS: HEPARIN SODIUM, PORCINE 5000 UNITS/1 ML VIAL SQ SCH (21:47)
[2022-08-02] MEDS: ATORVASTATIN 10 MG TABLET PO SCH (22:38)
[2022-08-02] MEDS: LOSARTAN POTASSIUM 25 MG TABLET PO SCH (22:38)
[2022-08-03] VITALS: BP 132/47
[2022-08-03 04:00] VITALS: BP 120/49
[2022-08-03] MEDS: IBUPROFEN 600 MG TABLET PO PRN ×2 (05:25→21:08)
[2022-08-03 06:06] LABS: BASOPHILS % (AUTO) 0.6 % (0.0-2.0); HEMATOCRIT 25 % (33-45); HEMOGLOBIN 8.2 g/dL (11.5-14.8); LYMPHOCYTES # (AUTO) 1.6 K/uL (0.8-4.8); LYMPHOCYTES % (AUTO) 29.2 % (20.0-44.0); MEAN CORPUSCULAR HGB CONC 33 g/dl (31.0-36.0); MEAN CORPUSCULAR VOLUME 100 fL (82-100); MONOCYTES # (AUTO) 0.5 K/uL (0.1-1.30); MONOCYTES % (AUTO) 8.8 % (2.0-12.0); NEUTROPHILS # (AUTO) 3.1 K/uL (1.8-8.9); NEUTROPHILS % (AUTO) 56.4 % (43.0-81.0); PLATELET COUNT (AUTO) 221 K/uL (150-450); RED BLOOD CELL COUNT(AUTO) 2.52 MIL/uL (4.0-5.2); WHITE BLOOD COUNT (AUTO) 5.5 K/uL (4.3-11.0)
--- NOTE | 2022-08-03 07:21 | NUR ---
INDUSTRIAL TWISTING MACHINE OPERATOR CLOSING NOTES PATIENT SLEEPING IN BED. EASILY AWAKENS TO VERBAL STIMULI. A/O X 4. NO S/S OF PAIN AT THIS TIME. ON ROOM AIR, BREATHING EVEN AND UNLABORED, NO DISTRESS OR SOB NOTED. IV ACCESS RIGHT WRIST #20G, INTACT, PATENT AND FLUSHING WELL. FALL AND SAFETY MEASURES IN PLACE WITH BED IN LOWEST LOCKED POSITION. SIDE RAILS UP X 2. BED ALARM ON. CALL LIGHT AND TABLE WITHIN EASY REACH. WILL ENDORSE TO THE NEXT SHIFT.
[2022-08-03 07:23] LABS: CALCIUM, SERUM 8.3 mg/dL (8.5-10.1); CREATININE 1.3 mg/dL (0.6-1.3); MAGNESIUM 2.3 mg/dL (1.8-2.4); PHOSPHORUS 4.7 mg/dL (2.5-4.9); POTASSIUM 4.6 mmol/L (3.5-5.1)
--- NOTE | 2022-08-03 07:25 | NUR ---
CONTACT WORKER OPENING NOTES RECEIVED PATIENT IN BED, AWAKE. A/O X 4, ABLE TO MAKE NEEDS KNOWN, UNABLE TO SEE CLEARLY. NO C/O PAIN/DISCOMFORT AT THIS TIME. ON OUTSIDE SALES ACCOUNT EXECUTIVE WITH CURRENT READING SR, HR 70. ON ROOM AIR, BREATHING EVEN AND UNLABORED. IV ACCESS RIGHT WRIST #20G, C/D/I. SAFETY MEASURES IN PLACE: BED IN LOWEST LOCKED POSITION, SIDE RAILS UP X 2, BED ALARM ON, CALL LIGHT AND TABLE WITHIN EASY REACH. WILL CONTINUE TO MONITOR.
[2022-08-03] MEDS: DULOXETINE HCL 30 MG CAPSULE.DR PO SCH (08:11)
[2022-08-03] MEDS: AMLODIPINE BESYLATE 5 MG TABLET PO SCH (08:12)
[2022-08-03] MEDS: OLANZAPINE 5 MG TABLET PO SCH (08:12)
[2022-08-03] MEDS: DOCUSATE SODIUM 100 MG CAPSULE PO SCH (08:12)
[2022-08-03] MEDS: HEPARIN SODIUM, PORCINE 5000 UNITS/1 ML VIAL SQ SCH ×2 (08:17→21:09)
[2022-08-03 09:23] VITALS: BP 153/74
[2022-08-03] MEDS: FUROSEMIDE 40 MG/4 ML VIAL IV SCH ×2 (09:29→16:15)
[2022-08-03] MEDS: CLOBETASOL 0.05% OINT 30 GM TUBE TP SCH ×2 (09:29→16:15)
[2022-08-03] MEDS: HYDROCODONE/APAP 5/325MG TABLET PO SCH ×2 (09:29→16:15)
[2022-08-03 12:00] VITALS: BP 147/78
[2022-08-03 14:51] LABS: BILIRUBIN,URINE NEGATIVE (NEGATIVE); COLOR,URINE YELLOW (YELLOW); LEUKOCYTE ESTERASE ,URINE TRACE (NEGATIVE); NITRITE, URINE NEGATIVE (NEGATIVE); PH,URINE 5.5 (5.0-8.0); PROTEIN,URINE NEGATIVE (NEGATIVE); UGLUCOSE NEGATIVE (NEGATIVE); UROBILINOGEN,URINE 0.2 EU/dL (0.2)
[2022-08-03 15:25] LABS: CREATININE, URINE 19.4 MG/DL (30.0-125.0)
[2022-08-03 15:54] LABS: BACTERIA,URINE None seen /HPF (None Seen); RBC,URINE 0-2 /HPF (0-2); SQUAMOUS EPITHELIAL CELL,UR 0-2 /HPF (None Seen); WBC,URINE 0-2 /HPF (0-3)
[2022-08-03 16:20] VITALS: BP 158/79
[2022-08-03] MEDS: CITALOPRAM HYDROBROMIDE 20 MG TABLET PO SCH (17:30)
--- NOTE | 2022-08-03 18:48 | NUR ---
POT ROOM TAPPER CLOSING NOTES PATIENT RESTING IN BED. A/O X 4, ABLE TO MAKE NEEDS KNOWN, UNABLE TO SEE CLEARLY. NO C/O PAIN/DISCOMFORT AT THIS TIME. ON COMPREHENSIVE ADVISOR WITH CURRENT READING SR, HR 70. ON ROOM AIR, BREATHING EVEN AND UNLABORED. IV ACCESS RIGHT WRIST #20G, C/D/I. SAFETY MEASURES IN PLACE: BED IN LOWEST LOCKED POSITION, SIDE RAILS UP X 2, BED ALARM ON, CALL LIGHT AND TABLE WITHIN EASY REACH. WILL ENDORSE LEEANN TO SURGICAL TECHNOLOGY INSTRUCTOR.
--- NOTE | 2022-08-03 19:30 | NUR ---
MIXER OPERATOR HELPER HOT METALENGINE TESTER NOTE RECEIVED PATIENT RESTING IN BED, AWAKE. PT A/O X 2-3, ABLE TO MAKE NEEDS KNOWN. NO C/O PAIN, OR DISCOMFORT AT THIS TIME. ON ROOM AIR, BREATHING EVEN AND UNLABORED, NO DISTRESS OR SOB NOTED. IV ACCESS TO LEFT HAND #22G, INTACT, PATENT AND FLUSHING WELL. BELONGING VERIFIED, AND BELONGING LIST SIGNED, AND PLACED IN CHART. SKIN ASSESSMENT COMPLETED. PT HAS REDNESS TO SACRAL AREA, REDNESS TO BILATERAL HEELS, AND BRUISE TO LEFT ARM. PICTURES TAKEN. FALL AND SAFETY MEASURES IN PLACE : BED IN LOWEST LOCKED POSITION. SIDE RAILS UP X 2. BED ALARM ON. CALL LIGHT AND TABLE WITHIN EASY REACH. WILL CONTINUE WITH THE PLAN OF CARE AND CARRY OUT ACTIVE MD ORDERS. Addendum: 08/04/22 at 0203 by SANDEEP SALMON RN WRONG ENTRY. PLEASE DISREGARD NOTE.
--- NOTE | 2022-08-03 19:40 | NUR ---
STITCHING MACHINE FEEDER OR OFFBEARER OPENING NOTE RECEIVED PATIENT IN BED, AWAKE. A/O X 4, ABLE TO MAKE NEEDS KNOWN, UNABLE TO SEE CLEARLY. NO C/O PAIN OR DISCOMFORT AT THIS TIME. ON ACCOUNT GROUP SUPERVISOR WITH CURRENT READING SR. ON ROOM AIR, WITH BREATHING EVEN AND UNLABORED. IV ACCESS TO RIGHT WRIST #20G, INTACT, AND PATENT. SAFETY MEASURES IN PLACE: BED IN LOWEST LOCKED POSITION, SIDE RAILS UP X 2, BED ALARM ON, CALL LIGHT AND TABLE WITHIN EASY REACH. WILL CONTINUE TO MONITOR.
[2022-08-03 20:11] VITALS: BP 145/63
[2022-08-03] MEDS: ATORVASTATIN 10 MG TABLET PO SCH (21:07)
[2022-08-03] MEDS: LOSARTAN POTASSIUM 25 MG TABLET PO SCH (21:08)
--- NOTE | 2022-08-03 21:08 | NUR ---
PATIENT FINANCIAL COUNSELOR NOTE PT C/O MILD PAIN TO BLE. MOTRIN ADMINISTERED TO PT.
[2022-08-04] VITALS (7 sets, daily range): BP systolic 129–157; BP diastolic 50–81
[2022-08-04] MEDS: ACETAMINOPHEN 325 MG TABLET PO PRN (03:30)
--- NOTE | 2022-08-04 03:30 | NUR ---
GASTROENTEROLOGY NURSE PRACTITIONER NOTE PT C/O MILD GENERALIZED PAIN. TYLENOL ADMINISTERED TO PT.
[2022-08-04 06:04] LABS: BASOPHILS % (AUTO) 0.7 % (0.0-2.0); EOSINOPHILS % (AUTO) 5.8 % (0.0-6.0); HEMATOCRIT 25 % (33-45); HEMOGLOBIN 8.5 g/dL (11.5-14.8); LYMPHOCYTES # (AUTO) 1.5 K/uL (0.8-4.8); LYMPHOCYTES % (AUTO) 30.3 % (20.0-44.0); MEAN CORPUSCULAR HGB CONC 33 g/dl (31.0-36.0); MEAN CORPUSCULAR VOLUME 99 fL (82-100); MONOCYTES # (AUTO) 0.5 K/uL (0.1-1.30); MONOCYTES % (AUTO) 9.3 % (2.0-12.0); NEUTROPHILS # (AUTO) 2.6 K/uL (1.8-8.9); NEUTROPHILS % (AUTO) 53.9 % (43.0-81.0); PLATELET COUNT (AUTO) 229 K/uL (150-450); RED BLOOD CELL COUNT(AUTO) 2.56 MIL/uL (4.0-5.2); WHITE BLOOD COUNT (AUTO) 4.9 K/uL (4.3-11.0)
[2022-08-04 06:40] LABS: CALCIUM, SERUM 8.1 mg/dL (8.5-10.1); CARBON DIOXIDE 27 mmol/L (21-32); CHLORIDE 106 mmol/L (98-107); CREATININE 1.3 mg/dL (0.6-1.3); GLUCOSE 97 mg/dL (74-106); MAGNESIUM 2.1 mg/dL (1.8-2.4); PHOSPHORUS 4.7 mg/dL (2.5-4.9); POTASSIUM 4.4 mmol/L (3.5-5.1); SODIUM SERUM 140 mmol/L (136-145); UREA NITROGEN, BLOOD 34 mg/dL (7-18)
--- NOTE | 2022-08-04 06:40 | NUR ---
PRODUCTS MECHANICAL DESIGN ENGINEER CLOSING NOTE LEFT PATIENT IN BED, AWAKE. A/O X 4, ABLE TO MAKE NEEDS KNOWN, UNABLE TO SEE CLEARLY. NO C/O PAIN OR DISCOMFORT AT THIS TIME. ON ASSEMBLER GOLD FRAME WITH CURRENT READING SR. ON ROOM AIR, WITH BREATHING EVEN AND UNLABORED. PT ON PUREWICK, DRAINING CLEAR YELLOW URINE, URINE OUTPUT: 1800 ML. IV ACCESS TO RIGHT WRIST #20G, INTACT, AND PATENT, SL. SAFETY MEASURES IN PLACE: BED IN LOWEST LOCKED POSITION, SIDE RAILS UP X 2, BED ALARM ON, CALL LIGHT AND TABLE WITHIN EASY REACH. WILL ENDORSE PT TO MORNING SHIFT NURSE FOR LEEANN.
--- NOTE | 2022-08-04 07:03 | NUR ---
SENIOR VICE PRESIDENT AND CHIEF INFORMATION OFFICER OPENING NOTES RECEIVED PATIENT SLEEPING IN BED, A/Ox4, ABLE TO MAKE NEEDS KNOWN. ON ROOM AIR NO S/S OF RESPIRATORY DISTRESS. ON TELE MONITORING SHOWING SINUS RHYTHM HR 69. NO S/S OF CARDIAC DISTRESS OR DISCOMFORT. IV ACCESS R WRIST #20G S/L. INTACT AND PATENT. ON BED REST, HAS PUREWICK, DRAINING YELLOW URINE. SKIN ISSUES: GENERALIZED RASH. SAFETY MEASURES IN PLACE: BED LOCKED AND IN LOWEST POSITION, HOB ELEVATED, CALL LIGHT WITHIN REACH, SIDE RAILS UPx2. WILL CONTINUE TO MONITOR.
--- NOTE | 2022-08-04 07:08 | NUR ---
ZULEMA FERMIN NOTE PT C/O MILD PAIN TO BLE. MOTRIN ADMINISTERED TO PT. Addendum: 08/04/22 at 0710 by SANDEEP SALMON RN WRONG ENTRY. PLEASE DISREGARD.
[2022-08-04] MEDS: FUROSEMIDE 40 MG/4 ML VIAL IV SCH ×2 (08:27→17:12)
[2022-08-04] MEDS: DULOXETINE HCL 30 MG CAPSULE.DR PO SCH (08:27)
[2022-08-04] MEDS: AMLODIPINE BESYLATE 5 MG TABLET PO SCH (08:28)
[2022-08-04] MEDS: DOCUSATE SODIUM 100 MG CAPSULE PO SCH (08:28)
[2022-08-04] MEDS: OLANZAPINE 5 MG TABLET PO SCH (08:28)
[2022-08-04] MEDS: HYDROCODONE/APAP 5/325MG TABLET PO SCH ×2 (08:28→17:13)
[2022-08-04] MEDS: HEPARIN SODIUM, PORCINE 5000 UNITS/1 ML VIAL SQ SCH ×2 (08:31→20:52)
[2022-08-04] MEDS: CLOBETASOL 0.05% OINT 30 GM TUBE TP SCH ×2 (08:37→17:15)
[2022-08-04] MEDS: hydrOXYzine 10 MG TABLET PO PRN ×2 (11:48→20:46)
--- NOTE | 2022-08-04 11:59 | NUR ---
RN NOTES PATIENT REQUESTED PRN ANXIETY MEDICATION, PRN ATARAX ADMINISTERED. WILL CONTINUE TO MONITOR.
[2022-08-04] MEDS: CITALOPRAM HYDROBROMIDE 20 MG TABLET PO SCH (17:14)
[2022-08-04] MEDS: METOPROLOL TARTRATE 25 MG TABLET PO SCH ×2 (17:38→20:45)
--- NOTE | 2022-08-04 18:42 | NUR ---
SHOPPING INVESTIGATOR CLOSING NOTES PATIENT AWAKE IN BED, A/Ox4, ABLE TO MAKE NEEDS KNOWN. STABLE ON ROOM AIR NO S/S OF RESPIRATORY DISTRESS. ON TELE MONITORING SHOWING SINUS RHYTHM HR 69. NO S/S OF CARDIAC DISTRESS OR DISCOMFORT. IV ACCESS R WRIST #20G S/L. INTACT AND PATENT. ON BED REST, HAS PUREWICK, DRAINING YELLOW URINE 1600 OUTPUT. SKIN ISSUES: GENERALIZED RASH. SAFETY MEASURES MAINTAINED: BED LOCKED AND IN LOWEST POSITION, HOB ELEVATED, CALL LIGHT WITHIN REACH, SIDE RAILS UPx2. WILL ENDORSE TO NEXT SHIFT ANY LEEANN.
--- NOTE | 2022-08-04 19:15 | NUR ---
TELERN FULLY AWAKE, ALL NEEDS MADE. ON PUREWICK, OUTPUT MONITORED. SAFETY PRECAUTIONS EMPHASIZED, APPEARS TO UNDERSTAND. SR ON THE MONITOR, CONTINUED MONITORING.
--- NOTE | 2022-08-04 22:00 | NUR ---
TELERN DUE MEDS ADMINISTERED. MULTIPLE NEEDS ATTENDED. REMAINS SR ON THE MONITOR
[2022-08-04] MEDS: ATORVASTATIN 10 MG TABLET PO SCH (22:04)
[2022-08-04] MEDS: LOSARTAN POTASSIUM 25 MG TABLET PO SCH (22:05)
[2022-08-04] MEDS: IBUPROFEN 600 MG TABLET PO PRN (23:50)
[2022-08-05] VITALS (8 sets, daily range): BP systolic 100–131; BP diastolic 49–74
--- NOTE | 2022-08-05 05:17 | NUR ---
TELERN AM CARE DONE. REPOSITIONED PER PATIENTS' COMFORT. CONTINUED MONITORING.
[2022-08-05 05:44] LABS: BASOPHILS % (AUTO) 0.4 % (0.0-2.0); EOSINOPHILS % (AUTO) 2.3 % (0.0-6.0); HEMATOCRIT 27 % (33-45); HEMOGLOBIN 8.8 g/dL (11.5-14.8); LYMPHOCYTES # (AUTO) 1.8 K/uL (0.8-4.8); LYMPHOCYTES % (AUTO) 26.7 % (20.0-44.0); MEAN CORPUSCULAR HGB CONC 33 g/dl (31.0-36.0); MEAN CORPUSCULAR VOLUME 99 fL (82-100); MONOCYTES # (AUTO) 0.6 K/uL (0.1-1.30); MONOCYTES % (AUTO) 9.3 % (2.0-12.0); NEUTROPHILS # (AUTO) 4.2 K/uL (1.8-8.9); NEUTROPHILS % (AUTO) 61.3 % (43.0-81.0); PLATELET COUNT (AUTO) 227 K/uL (150-450); WHITE BLOOD COUNT (AUTO) 6.8 K/uL (4.3-11.0)
[2022-08-05 05:56] LABS: CALCIUM, SERUM 8.3 mg/dL (8.5-10.1); CARBON DIOXIDE 28 mmol/L (21-32); CHLORIDE 105 mmol/L (98-107); CREATININE 1.5 mg/dL (0.6-1.3); GLUCOSE 105 mg/dL (74-106); PHOSPHORUS 5.1 mg/dL (2.5-4.9); POTASSIUM 4.6 mmol/L (3.5-5.1); SODIUM SERUM 141 mmol/L (136-145); UREA NITROGEN, BLOOD 41 mg/dL (7-18)
[2022-08-05] MEDS: ACETAMINOPHEN 325 MG TABLET PO PRN (06:27)
--- NOTE | 2022-08-05 07:00 | NUR ---
MS RN OPENING NOTES: RECEIVED PT IN BED ASLEEP. EASILY AROUSED WITH STIMULI. A/O X 4 AND ABLE TO MAKE NEEDS KNOWN. NO SOB OR CARDIAC DISTRESS NOTED. ON ROOM AIR AND TOLERATING WELL. ON AIR CONDITIONING UNIT TESTER WITH CURRENT READING : SINUS RHYTHM @80BPM. IV ACCESS ON RIGHT WRIST GAUGE 20 PATENT, INTACT AND SALINE LOCKED. PUREWICK ATTACHED NOTED WITH CLEAR YELLOW COLORED URINE ON CONTINUOUS VACUUM. SAFETY MEASURES MAINTAINED:BED LOCKED AND IN LOWEST POSITION, INSURANCE APPLICATION INVESTIGATOR RAILS UP X 2. CALL LIGHT IN EASY REACH AND WILL MONITOR PT ACCORDINGLY.
[2022-08-05] MEDS: OLANZAPINE 5 MG TABLET PO SCH (08:27)
[2022-08-05] MEDS: FUROSEMIDE 40 MG/4 ML VIAL IV SCH ×2 (08:27→17:15)
[2022-08-05] MEDS: METOPROLOL TARTRATE 25 MG TABLET PO SCH ×2 (08:28→21:48)
[2022-08-05] MEDS: DULOXETINE HCL 30 MG CAPSULE.DR PO SCH (08:28)
[2022-08-05] MEDS: HYDROCODONE/APAP 5/325MG TABLET PO SCH ×2 (08:28→17:15)
[2022-08-05] MEDS: AMLODIPINE BESYLATE 5 MG TABLET PO SCH (08:28)
[2022-08-05] MEDS: DOCUSATE SODIUM 100 MG CAPSULE PO SCH (08:29)
[2022-08-05] MEDS: HEPARIN SODIUM, PORCINE 5000 UNITS/1 ML VIAL SQ SCH ×2 (08:30→22:02)
[2022-08-05] MEDS: CLOBETASOL 0.05% OINT 30 GM TUBE TP SCH ×2 (08:55→17:22)
[2022-08-05] MEDS ORDERED: hydrOXYzine PAMOATE 25 MG CAPSULE PO PRN (14:00)
[2022-08-05] MEDS: CITALOPRAM HYDROBROMIDE 20 MG TABLET PO SCH (17:15)
--- NOTE | 2022-08-05 18:43 | NUR ---
LINE CAMERA OPERATOR CLOSING NOTES PATIENT AWAKE IN BED, A/Ox4, ABLE TO VERBALIZED NEEDS. ON ROOM AIR AND TOLERATING WELL. . ON TELE MONITORING WITH CURRENT READING OF SINUS RHYTHM HR 60 BPM. NO S/S OF CARDIAC DISTRESS OR DISCOMFORT. IV ACCESS R WRIST #20G S/L. INTACT AND PATENT. ON BED REST, HAS PUREWICK, DRAINING YELLOW URINE VIA GRAVITY. SAFETY MEASURES MAINTAINED: BED LOCKED AND IN LOWEST POSITION, HOB ELEVATED, CALL LIGHT WITHIN REACH, SIDE RAILS UPx2. WILL ENDORSE TO NEXT SHIFT ANY LEEANN.
--- NOTE | 2022-08-05 19:30 | NUR ---
CAUL DRESSER OPENING NOTES RECEIVED PATIENT AWAKE, ALERT AND ORIENTED. A/O X 4. NO S/S OF PAIN AT THIS TIME. ON ROOM AIR, BREATHING EVEN AND UNLABORED, NO DISTRESS OR SOB NOTED. IV ACCESS RIGHT WRIST #20G, INTACT, PATENT AND FLUSHING WELL. SAFETY MEASURES IN PLACE WITH BED IN LOWEST LOCKED POSITION. SIDE RAILS UP X 2. BED ALARM ON. CALL LIGHT AND TABLE WITHIN EASY REACH. WILL CONTINUE WITH THE PLAN OF CARE AND CARRY OUT ACTIVE MD ORDERS.
[2022-08-05] MEDS: ATORVASTATIN 10 MG TABLET PO SCH (21:49)
[2022-08-05] MEDS: LOSARTAN POTASSIUM 25 MG TABLET PO SCH (21:49)
[2022-08-05] MEDS: IBUPROFEN 600 MG TABLET PO PRN (21:50)
--- NOTE | 2022-08-05 21:50 | NUR ---
RN NOTES- MOTRIN 600 MG GIVEN PATIENT C/O OF BLE PAIN WITH THE SCALE OF 6-7/10. MOTRIN 600MG GIVEN PRN. WILL CONTINUE TO MONITOR THE PATIENT.
--- NOTE | 2022-08-05 23:45 | NUR ---
RN NOTES-NEW IV ACCESS PATIENT IV ACCESS @ RIGHT WRIST DISLODGED. NEW IV ACCESS @ LEFT WRIST #22G INTACT, PATENT AND FLUSHING WELL.
[2022-08-06 01:00] VITALS: BP 151/75
[2022-08-06] MEDS: IBUPROFEN 600 MG TABLET PO PRN ×2 (04:15→13:04)
--- NOTE | 2022-08-06 04:15 | NUR ---
RN NOTES-MOTRIN 600 MG GIVEN PATIENT C/O OF BLE PAIN WITH THE SCALE OF 6-7/10. MOTRIN 600MG GIVEN PRN. WILL CONTINUE TO MONITOR THE PATIENT.
[2022-08-06 04:24] VITALS: BP 156/64
[2022-08-06 06:00] LABS: BASOPHILS % (AUTO) 0.7 % (0.0-2.0); EOSINOPHILS % (AUTO) 4.9 % (0.0-6.0); HEMATOCRIT 27 % (33-45); HEMOGLOBIN 8.9 g/dL (11.5-14.8); LYMPHOCYTES # (AUTO) 2.1 K/uL (0.8-4.8); LYMPHOCYTES % (AUTO) 32.4 % (20.0-44.0); MEAN CORPUSCULAR HGB CONC 33 g/dl (31.0-36.0); MEAN CORPUSCULAR VOLUME 100 fL (82-100); MONOCYTES # (AUTO) 0.6 K/uL (0.1-1.30); MONOCYTES % (AUTO) 9.6 % (2.0-12.0); NEUTROPHILS # (AUTO) 3.4 K/uL (1.8-8.9); NEUTROPHILS % (AUTO) 52.4 % (43.0-81.0); PLATELET COUNT (AUTO) 223 K/uL (150-450); RED BLOOD CELL COUNT(AUTO) 2.71 MIL/uL (4.0-5.2); WHITE BLOOD COUNT (AUTO) 6.5 K/uL (4.3-11.0)
[2022-08-06 06:11] LABS: CALCIUM, SERUM 8.2 mg/dL (8.5-10.1); CARBON DIOXIDE 29 mmol/L (21-32); CHLORIDE 102 mmol/L (98-107); CREATININE 1.6 mg/dL (0.6-1.3); GLUCOSE 110 mg/dL (74-106); POTASSIUM 4.7 mmol/L (3.5-5.1); SODIUM SERUM 138 mmol/L (136-145); UREA NITROGEN, BLOOD 57 mg/dL (7-18)
--- NOTE | 2022-08-06 07:28 | NUR ---
JACK WINDER CLOSING NOTES PATIENT AWAKE, ALERT AND ORIENTED. A/O X 4. NO S/S OF PAIN AT THIS TIME. ON ROOM AIR, BREATHING EVEN AND UNLABORED, NO DISTRESS OR SOB NOTED. IV ACCESS LEFT WRIST #22G, INTACT, PATENT AND FLUSHING WELL. ALL NEEDS ATTENDED. SAFETY MEASURES MAINTAINED WITH BED IN LOWEST LOCKED POSITION. SIDE RAILS UP X 2. BED ALARM ON. CALL LIGHT AND TABLE WITHIN EASY REACH. WILL ENDORSE TO THE NEXT SHIFT.
--- NOTE | 2022-08-06 07:54 | NUR ---
TELE SUPERVISOR SINTERING PLANT OPENING NOTES PATIENT RECEIVED AWAKE A/Ox4. ON ROOM AIR. WITH NO S/S OF SOB. ABLE TO MAKE NEED KNOWN. PATIENT STATED CHRONIC PAIN IN LOWER BILATERAL EXTREMITIES, BUT STATED NO MEDICATION IS NEEDED AT THIS TIME. PATIENT IS CURRENTLY ON EXTERNAL ATMOSPHERIC DRIER TENDER WITH CURRENT READING OF SB IN 50s. PATIENT IS INCONTINENT USING PURE[place]ICK. IV ACCESS ON THE L WRIST G#22 INTACT AND FLUSHING WELL. FALL AND SAFETY MEASURES IN PLACE: BED ALARM IS ON, BED AT THE LOWEST POSITION AND LOCKED, SRx2 &CALL LIGHT WITHIN REACH.
[2022-08-06 08:12] VITALS: BP 121/55
[2022-08-06] MEDS: FUROSEMIDE 40 MG/4 ML VIAL IV SCH (08:54)
[2022-08-06] MEDS: METOPROLOL TARTRATE 25 MG TABLET PO SCH (09:00)
--- NOTE | 2022-08-06 09:00 | NUR ---
STRUCTURAL STEEL EQUIPMENT ERECTOR NOTE METOPROLOL 25 MG WAS HELD, HR 53, LESS THAN 60.
[2022-08-06] MEDS: HYDROCODONE/APAP 5/325MG TABLET PO SCH (09:01)
[2022-08-06] MEDS: DOCUSATE SODIUM 100 MG CAPSULE PO SCH (09:01)
[2022-08-06] MEDS: DULOXETINE HCL 30 MG CAPSULE.DR PO SCH (09:02)
[2022-08-06] MEDS: AMLODIPINE BESYLATE 5 MG TABLET PO SCH (09:04)
[2022-08-06] MEDS: HEPARIN SODIUM, PORCINE 5000 UNITS/1 ML VIAL SQ SCH (09:05)
[2022-08-06] MEDS: CLOBETASOL 0.05% OINT 30 GM TUBE TP SCH (09:08)
[2022-08-06] MEDS: OLANZAPINE 5 MG TABLET PO SCH (09:13)
[2022-08-06] MEDS ORDERED: FURO-144 PO (10:47)
[2022-08-06] MEDS ORDERED: ASPI-1420 PO (10:47)
[2022-08-06] MEDS ORDERED: HYDR-3895 PO (10:47)
[2022-08-06 12:25] VITALS: BP 103/66
--- NOTE | 2022-08-06 15:20 | NUR ---
CASE OPERATOR DISCHARGE NOTE PATIENT IS DISCHARGED TO [facility], ASSISTED LIVING IN A STABLE CONDITION. AOx4 ON ROOM AIR. ABLE TO MAKE NEED KNOWN. NO S/S OF SOB. IV ACCESS REMOVED, CATHETER TIP INTACT, PRESSURE DRESSING APPLIED. PATIENT WAS GIVEN INSTRUCTIONS VERBALLY AND WRITTEN FORM, VERBALIZED UNDERSTANDING. PATIENT BELONGINGS CHECKED AND ACCOUNTED FOR, BELONGING LIST SIGNED. PATIENT LEFT VIA GURNEY ACCOMPANIED BY EMT. CHARGED NURSE WAS AWARE OF DISCHARGE.
== END 2022-08-06 15:31 | DRG 291 ==
LOC: ER 12:57 → TELE 17:26
PROVIDERS: ADMIT Nurse Practitioner Acute Care; ATTEND Legal Medicine
DX: I11.0 Hypertensive heart disease with heart failure (principal); I50.31 Acute diastolic (congestive) heart failure; N17.0 Acute kidney failure with tubular necrosis; D68.59 Other primary thrombophilia; F03.94 Unspecified dementia, unspecified severity, with anxiety; E46 Unspecified protein-calorie malnutrition; Z68.41 Body mass index [BMI] 40.0-44.9, adult; M19.90 Unspecified osteoarthritis, unspecified site; G89.4 Chronic pain syndrome; Z88.0 Allergy status to penicillin; I08.0 Rheumatic disorders of both mitral and aortic valves; E66.01 Morbid (severe) obesity due to excess calories; Z20.822 Contact with and (suspected) exposure to COVID-19
CPT/HCPCS: 36415; 71045-TC; 80048-TC; 80061-TC; 80076-TC; 81001; 82570-TC; 83735-TC; 83880; 84100-TC; 84300-TC; 84484-TC; 85025-TC; 87081-TC; 93307-TC; 93970-TC; 97112-TC; 97116-TC; 97530-TC; C9803; G0378; J1644; J1940; Q0177

== ENCOUNTER 2023-05-07 01:56 | Emergency (ER) | payer MEDICARE, OTHER ==
[~2023-05-07] VITALS: Ht 160 cm; Wt 90.7 kg
[~2023-05-07 01:56] MED LIST changes: +OLAN5TAB3 PO; -TEMA15CA PO; +ZOLP5TAB8 PO
[2023-05-07 02:26] LABS: BASOPHILS % (AUTO) 0.1 % (0.0-2.0); EOSINOPHILS % (AUTO) 0.1 % (0.0-6.0); HEMATOCRIT 37 % (33-45); LYMPHOCYTES # (AUTO) 0.9 K/uL (0.8-4.8); LYMPHOCYTES % (AUTO) 7.1 % (20.0-44.0); MEAN CORPUSCULAR HEMOGLOBIN 31 PG (26.0-33.0); MEAN CORPUSCULAR HGB CONC 32 g/dl (31.0-36.0); MEAN CORPUSCULAR VOLUME 95 fL (82-100); MONOCYTES # (AUTO) 0.4 K/uL (0.1-1.30); MONOCYTES % (AUTO) 3.2 % (2.0-12.0); NEUTROPHILS # (AUTO) 10.8 K/uL (1.8-8.9); NEUTROPHILS % (AUTO) 89.5 % (43.0-81.0); PLATELET COUNT (AUTO) 281 K/uL (150-450); RED BLOOD CELL COUNT(AUTO) 3.87 MIL/uL (4.0-5.2); RED CELL DISTRIBUTION WIDTH 14.5 % (11.5-15.0); WHITE BLOOD COUNT (AUTO) 12.1 K/uL (4.3-11.0)
[2023-05-07] MEDS ORDERED: ONDANSETRON 4 MG TAB.RAPDIS ONE (02:27)
[2023-05-07] MEDS ORDERED: ONDANSETRON HCL/PF 4 MG/2 ML VIAL ONE ×2 (02:30→03:13)
[2023-05-07] MEDS ORDERED: ONDANSETRON HCL/PF 4 MG/2 ML VIAL IV ONE ×2 (02:30→03:30)
[2023-05-07 02:40] LABS: CALCIUM, SERUM 8.4 mg/dL (8.5-10.1); CARBON DIOXIDE 27 mmol/L (21-32); CHLORIDE 100 mmol/L (98-107); CREATININE 1.7 mg/dL (0.6-1.3); GLUCOSE 235 mg/dL (74-106); POTASSIUM 3.8 mmol/L (3.5-5.1); SODIUM SERUM 137 mmol/L (136-145); UREA NITROGEN, BLOOD 46 mg/dL (7-18)
[2023-05-07 02:47] LABS: ALANINE AMINOTRANSFERASE 22 U/L (12-78); ALBUMIN 3.1 g/dL (3.4-5.0); ALKALINE PHOSPHATASE 112 U/L (46-116); ASPARTATE AMINOTRANSFERASE 17 U/L (15-37); BILIRUBIN,DIRECT 0.1 mg/dL (0.0-0.2); BILIRUBIN,TOTAL 0.3 mg/dL (0.2-1.0); LIPASE 26 U/L (16-77); TOTAL PROTEIN, SERUM 7.6 g/dL (6.4-8.2)
[2023-05-07] MEDS ORDERED: ONDA4TAB5 PO (03:25)
[2023-05-07 07:45] VITALS: BP 143/59; TEMP 97.9; O2SAT 94
== END 2023-05-07 07:46 | disposition home or self-care (01) ==
LOC: ER 02:05
DX: R11.2 Nausea with vomiting, unspecified (principal); I10 Essential (primary) hypertension; K21.9 Gastro-esophageal reflux disease without esophagitis; Z88.0 Allergy status to penicillin; Z79.899 Other long term (current) drug therapy; Z20.822 Contact with and (suspected) exposure to COVID-19
CPT/HCPCS: 99284; 96374; 87426; 87804 ×2; 96376; 85025; 80048; 83690; 80076; 36415; J2405 ×2; Q0162

== ENCOUNTER 2023-07-12 18:45 | Inpatient (IN) | payer MEDICARE, OTHER ==
[~2023-07-12] VITALS: Ht 157.5 cm; Wt 114.5 kg
[~2023-07-12 18:45] MED LIST changes: +ONDA4TAB5 PO
[2023-07-12] MEDS ORDERED: TRAZ-182 PO (19:36)
[2023-07-12] MEDS ORDERED: ACET-868 PO (19:36)
[2023-07-12] MEDS ORDERED: FURO80TA3 PO (19:36)
[2023-07-12] MEDS ORDERED: LORA-259 PO (19:36)
[2023-07-12] MEDS ORDERED: HYDR-500 PO (19:36)
[2023-07-12] MEDS ORDERED: ONDA4TAB5 PO (19:36)
[2023-07-12] MEDS ORDERED: KETO15CR2 TP (19:36)
[2023-07-12] MEDS ORDERED: NYST1POW11 TP (19:36)
[2023-07-12] MEDS ORDERED: CHOL100043 PO (19:36)
[2023-07-12] MEDS ORDERED: DULO60CA64 PO (19:36)
[2023-07-12] MEDS ORDERED: FLUO10CA26 PO (19:36)
[2023-07-12] MEDS ORDERED: NYST30CR2 TP (19:36)
[2023-07-12] MEDS ORDERED: TRIAMCINOLONE TP (19:36)
[2023-07-12] MEDS ORDERED: DOCU250C14 PO (19:36)
[2023-07-12] MEDS ORDERED: DOXY100C2 PO (19:36)
[2023-07-12] MEDS ORDERED: KETO120S5 TP (19:36)
[2023-07-12] MEDS ORDERED: VITA1TAB98 PO (19:36)
[2023-07-12 20:02] LABS: BASOPHILS % (AUTO) 0.5 % (0.0-2.0); EOSINOPHILS # (AUTO) 0.3 K/uL (0.0-0.7); EOSINOPHILS % (AUTO) 3.3 % (0.0-6.0); HEMATOCRIT 24 % (33-45); LYMPHOCYTES # (AUTO) 1.3 K/uL (0.8-4.8); LYMPHOCYTES % (AUTO) 17.4 % (20.0-44.0); MEAN CORPUSCULAR HEMOGLOBIN 32 PG (26.0-33.0); MEAN CORPUSCULAR HGB CONC 33 g/dl (31.0-36.0); MEAN CORPUSCULAR VOLUME 96 fL (82-100); MONOCYTES # (AUTO) 0.6 K/uL (0.1-1.30); MONOCYTES % (AUTO) 7.7 % (2.0-12.0); NEUTROPHILS # (AUTO) 5.4 K/uL (1.8-8.9); NEUTROPHILS % (AUTO) 71.1 % (43.0-81.0); PLATELET COUNT (AUTO) 312 K/uL (150-450); RED BLOOD CELL COUNT(AUTO) 2.51 MIL/uL (4.0-5.2); WHITE BLOOD COUNT (AUTO) 7.6 K/uL (4.3-11.0)
[2023-07-12 20:10] LABS: CARBON DIOXIDE 30 mmol/L (21-32); CHLORIDE 97 mmol/L (98-107); CREATININE 4.3 mg/dL (0.6-1.3); GLUCOSE 160 mg/dL (74-106); POTASSIUM 3.9 mmol/L (3.5-5.1); SODIUM SERUM 134 mmol/L (136-145); UREA NITROGEN, BLOOD 66 mg/dL (7-18)
[2023-07-12 22:26] LABS: BASOPHILS % (MANUAL) 0 % (0.0-2.0); EOSINOPHILS % (MANUAL) 7 % (0-4); LYMPHOCYTES % (MANUAL) 15 % (16-48); MONOCYTES % (MANUAL) 6 % (0-11.0); NEUTROPHILS % (MANUAL) 72 (42-76); PLATELET ESTIMATE ADEQUATE
[2023-07-12] MEDS ORDERED: FUROSEMIDE 40 MG/4 ML VIAL ONE (23:21)
[2023-07-12] MEDS ORDERED: ASPIRIN 325 MG TABLET ONE (23:21)
[2023-07-12] MEDS: ASPIRIN 325 MG TABLET PO SCH (23:28)
[2023-07-12] MEDS: FUROSEMIDE 40 MG/4 ML VIAL IV ONE (23:28)
[2023-07-13] MEDS ORDERED: MAG HYDROX/AL HYDROX/SIMETH 30 ML UDC PO PRN
[2023-07-13] MEDS ORDERED: MAGNESIUM HYDROXIDE 30 ML UDC PO PRN
[2023-07-13] MEDS ORDERED: ONDANSETRON HCL/PF 4 MG/2 ML VIAL IVP PRN
[2023-07-13] MEDS ORDERED: Z GUARD REMEDY 4 OZ OINT TP PRN
[2023-07-13 00:10] VITALS: BP 147/78; TEMP 97.5; O2SAT 99
[2023-07-13] MEDS: ZOLPIDEM TARTRATE 5 MG TABLET PO PRN (01:01)
[2023-07-13 04:00] VITALS: BP 139/70; TEMP 97.7; O2SAT 97
[2023-07-13 07:00] VITALS: BP 117/56; TEMP 97.7; O2SAT 92
[2023-07-13 07:13] LABS: BASOPHILS % (AUTO) 0.5 % (0.0-2.0); EOSINOPHILS # (AUTO) 0.3 K/uL (0.0-0.7); HEMATOCRIT 23 % (33-45); HEMOGLOBIN 7.6 g/dL (11.5-14.8); LYMPHOCYTES # (AUTO) 1.6 K/uL (0.8-4.8); MEAN CORPUSCULAR HEMOGLOBIN 32 PG (26.0-33.0); MEAN CORPUSCULAR HGB CONC 34 g/dl (31.0-36.0); MEAN CORPUSCULAR VOLUME 96 fL (82-100); MONOCYTES # (AUTO) 0.6 K/uL (0.1-1.30); MONOCYTES % (AUTO) 7.9 % (2.0-12.0); NEUTROPHILS # (AUTO) 5.1 K/uL (1.8-8.9); NEUTROPHILS % (AUTO) 66.6 % (43.0-81.0); PLATELET COUNT (AUTO) 307 K/uL (150-450); RED BLOOD CELL COUNT(AUTO) 2.35 MIL/uL (4.0-5.2); RED CELL DISTRIBUTION WIDTH 14.8 % (11.5-15.0); WHITE BLOOD COUNT (AUTO) 7.6 K/uL (4.3-11.0)
[2023-07-13 07:58] LABS: CALCIUM, SERUM 8.1 mg/dL (8.5-10.1); CARBON DIOXIDE 27 mmol/L (21-32); CHLORIDE 101 mmol/L (98-107); CREATININE 3.9 mg/dL (0.6-1.3); GLUCOSE 125 mg/dL (74-106); MAGNESIUM 2.5 mg/dL (1.8-2.4); PHOSPHORUS 6.1 mg/dL (2.5-4.9); POTASSIUM 3.6 mmol/L (3.5-5.1); SODIUM SERUM 140 mmol/L (136-145); UREA NITROGEN, BLOOD 66 mg/dL (7-18)
[2023-07-13 08:55] LABS: CHOLESTEROL 99 mg/dL (<200); HDL CHOLESTEROL 50 mg/dL (40-60); LDL 41 mg/dL (0-99); THYROID STIMULATING HORMONE 2.077 uIU/mL (0.358-3.74); TRIGLYCERIDES 36 mg/dL (30-150)
[2023-07-13] MEDS: Fluoxetine 10 mg capsule PO SCH (08:57)
[2023-07-13] MEDS: DOCUSATE SODIUM 250 MG CAPSULE PO SCH (08:57)
[2023-07-13] MEDS: OLANZAPINE 5 MG TABLET PO SCH (08:57)
[2023-07-13] MEDS: ASPIRIN 81 MG TAB.CHEW PO SCH (08:57)
[2023-07-13] MEDS: DULOXETINE HCL 30 MG CAPSULE.DR PO SCH (09:07)
[2023-07-13] MEDS: PANTOPRAZOLE 40 MG VIAL IV SCH (09:59)
[2023-07-13] MEDS: FUROSEMIDE 40 MG/4 ML VIAL IV SCH (10:03)
[2023-07-13] MEDS: AMLODIPINE BESYLATE 5 MG TABLET PO SCH (10:04)
[2023-07-13] MEDS: HEPARIN SODIUM, PORCINE 5000 UNITS/1 ML VIAL SQ SCH (10:07)
[2023-07-13] MEDS: CLOTRIMAZOLE 1% 15 GM TUBE TP SCH (16:28)
[2023-07-13 20:00] VITALS: BP 103/54; TEMP 98.6; O2SAT 97
[2023-07-13] MEDS: ACETAMINOPHEN 325 MG TABLET PO PRN (22:19)
[2023-07-13] MEDS: ATORVASTATIN 10 MG TABLET PO SCH (22:19)
[2023-07-13] MEDS: TRAZODONE 50 MG TABLET PO SCH (22:19)
[2023-07-14] VITALS: BP 104/57; TEMP 98.6; O2SAT 95
[2023-07-14 04:00] VITALS: BP 115/61; TEMP 98.1; O2SAT 95
[2023-07-14 07:17] LABS: BASOPHILS % (AUTO) 0.5 % (0.0-2.0); EOSINOPHILS # (AUTO) 0.3 K/uL (0.0-0.7); EOSINOPHILS % (AUTO) 6.2 % (0.0-6.0); HEMATOCRIT 21 % (33-45); HEMOGLOBIN 7.1 g/dL (11.5-14.8); LYMPHOCYTES # (AUTO) 1.6 K/uL (0.8-4.8); LYMPHOCYTES % (AUTO) 28.4 % (20.0-44.0); MEAN CORPUSCULAR HEMOGLOBIN 32 PG (26.0-33.0); MEAN CORPUSCULAR HGB CONC 33 g/dl (31.0-36.0); MEAN CORPUSCULAR VOLUME 95 fL (82-100); MONOCYTES # (AUTO) 0.6 K/uL (0.1-1.30); MONOCYTES % (AUTO) 10.4 % (2.0-12.0); NEUTROPHILS # (AUTO) 3.1 K/uL (1.8-8.9); NEUTROPHILS % (AUTO) 54.5 % (43.0-81.0); PLATELET COUNT (AUTO) 285 K/uL (150-450); RED BLOOD CELL COUNT(AUTO) 2.25 MIL/uL (4.0-5.2); RED CELL DISTRIBUTION WIDTH 15.1 % (11.5-15.0); WHITE BLOOD COUNT (AUTO) 5.6 K/uL (4.3-11.0)
[2023-07-14 08:30] VITALS: BP 93/47; TEMP 97.9; O2SAT 96
[2023-07-14 09:34] LABS: ALANINE AMINOTRANSFERASE 12 U/L (12-78); ALBUMIN 2.4 g/dL (3.4-5.0); ALKALINE PHOSPHATASE 80 U/L (46-116); ASPARTATE AMINOTRANSFERASE 13 U/L (15-37); BILIRUBIN,TOTAL 0.4 mg/dL (0.2-1.0); CALCIUM, SERUM 8.6 mg/dL (8.5-10.1); CARBON DIOXIDE 27 mmol/L (21-32); CHLORIDE 102 mmol/L (98-107); CREATININE 3.4 mg/dL (0.6-1.3); GLUCOSE 109 mg/dL (74-106); MAGNESIUM 2.5 mg/dL (1.8-2.4); PHOSPHORUS 5.6 mg/dL (2.5-4.9); POTASSIUM 3.5 mmol/L (3.5-5.1); SODIUM SERUM 140 mmol/L (136-145); TOTAL PROTEIN, SERUM 6.1 g/dL (6.4-8.2); UREA NITROGEN, BLOOD 71 mg/dL (7-18)
[2023-07-14 16:00] VITALS: BP 107/57; TEMP 97.9; O2SAT 95
[2023-07-14 20:00] VITALS: BP_SYST 120; BP_DIAS 74; BP_DIAS 79; TEMP 98.2; O2SAT 97
[2023-07-14 21:44] VITALS: O2SAT 97
[2023-07-15] VITALS (8 sets, daily range): BP systolic 96–137; BP diastolic 48–81; TEMP 97.7–98.6; O2SAT 94–98
[2023-07-15] MEDS: LORAZEPAM 1 MG TABLET PO PRN (00:01)
[2023-07-15 04:13] LABS: BASOPHILS % (AUTO) 0.6 % (0.0-2.0); EOSINOPHILS # (AUTO) 0.4 K/uL (0.0-0.7); HEMATOCRIT 21 % (33-45); LYMPHOCYTES # (AUTO) 1.6 K/uL (0.8-4.8); MEAN CORPUSCULAR HEMOGLOBIN 32 PG (26.0-33.0); MEAN CORPUSCULAR HGB CONC 33 g/dl (31.0-36.0); MEAN CORPUSCULAR VOLUME 97 fL (82-100); MONOCYTES # (AUTO) 0.6 K/uL (0.1-1.30); MONOCYTES % (AUTO) 9.6 % (2.0-12.0); NEUTROPHILS # (AUTO) 3.7 K/uL (1.8-8.9); NEUTROPHILS % (AUTO) 58.8 % (43.0-81.0); PLATELET COUNT (AUTO) 278 K/uL (150-450); RED BLOOD CELL COUNT(AUTO) 2.18 MIL/uL (4.0-5.2); RED CELL DISTRIBUTION WIDTH 15.2 % (11.5-15.0); WHITE BLOOD COUNT (AUTO) 6.3 K/uL (4.3-11.0)
[2023-07-15 04:20] LABS: CALCIUM, SERUM 8.3 mg/dL (8.5-10.1); CARBON DIOXIDE 30 mmol/L (21-32); CHLORIDE 102 mmol/L (98-107); CREATININE 3.1 mg/dL (0.6-1.3); GLUCOSE 110 mg/dL (74-106); POTASSIUM 3.4 mmol/L (3.5-5.1); SODIUM SERUM 139 mmol/L (136-145); UREA NITROGEN, BLOOD 66 mg/dL (7-18)
[2023-07-15 04:28] LABS: HEMOGLOBIN 6.9 g/dL (11.5-14.8)
[2023-07-15 05:38] LABS: ANISOCYTOSIS 1+; BASOPHILS % (MANUAL) 0 % (0.0-2.0); EOSINOPHILS % (MANUAL) 5 % (0-4); HYPOCHROMASIA 1+; LYMPHOCYTES % (MANUAL) 21 % (16-48); MONOCYTES % (MANUAL) 11 % (0-11.0); NEUTROPHILS % (MANUAL) 63 (42-76); PLATELET ESTIMATE ADEQUATE
[2023-07-15] MEDS: PANTOPRAZOLE 40 MG TABLET.DR PO SCH (09:36)
[2023-07-15 09:54] LABS: IRON, SERUM 25 ug/dl (50-175); TOTAL IRON BINDING CAPACITY 254 ug/dl (250-450)
[2023-07-15 10:14] LABS: FERRITIN 31 ng/mL (8-388)
[2023-07-15] MEDS: POTASSIUM CHLORIDE 10 MEQ TABLET.SA PO ONE (23:22)
[2023-07-16] VITALS: BP 132/50; TEMP 97.8; O2SAT 97
[2023-07-16 05:00] VITALS: BP 118/55; TEMP 98.4; O2SAT 97
[2023-07-16 07:24] LABS: BASOPHILS % (AUTO) 0.4 % (0.0-2.0); EOSINOPHILS # (AUTO) 0.4 K/uL (0.0-0.7); EOSINOPHILS % (AUTO) 5.7 % (0.0-6.0); HEMATOCRIT 24 % (33-45); LYMPHOCYTES # (AUTO) 1.2 K/uL (0.8-4.8); LYMPHOCYTES % (AUTO) 17.3 % (20.0-44.0); MEAN CORPUSCULAR HEMOGLOBIN 32 PG (26.0-33.0); MEAN CORPUSCULAR HGB CONC 34 g/dl (31.0-36.0); MEAN CORPUSCULAR VOLUME 95 fL (82-100); MONOCYTES # (AUTO) 0.6 K/uL (0.1-1.30); MONOCYTES % (AUTO) 8.9 % (2.0-12.0); NEUTROPHILS # (AUTO) 4.6 K/uL (1.8-8.9); NEUTROPHILS % (AUTO) 67.7 % (43.0-81.0); PLATELET COUNT (AUTO) 267 K/uL (150-450); RED BLOOD CELL COUNT(AUTO) 2.53 MIL/uL (4.0-5.2); RED CELL DISTRIBUTION WIDTH 15.2 % (11.5-15.0); WHITE BLOOD COUNT (AUTO) 6.8 K/uL (4.3-11.0)
[2023-07-16 07:33] LABS: CALCIUM, SERUM 8.5 mg/dL (8.5-10.1); CARBON DIOXIDE 30 mmol/L (21-32); CHLORIDE 104 mmol/L (98-107); CREATININE 2.3 mg/dL (0.6-1.3); GLUCOSE 115 mg/dL (74-106); POTASSIUM 3.3 mmol/L (3.5-5.1); SODIUM SERUM 142 mmol/L (136-145); UREA NITROGEN, BLOOD 64 mg/dL (7-18)
[2023-07-16 08:16] VITALS: BP 129/68; TEMP 98.3; O2SAT 94
[2023-07-16] MEDS: POTASSIUM CHLORIDE 20 MEQ TAB.PRT.SR PO SCH (10:38)
[2023-07-16 11:56] VITALS: BP 134/63; TEMP 98.5; O2SAT 95
[2023-07-16] MEDS: SOD FERRIC GLUC 125 MG in IV NS 0.9% 100 ML IV SCH (14:16)
[2023-07-16 15:52] VITALS: BP 123/50; TEMP 98.6; O2SAT 95
[2023-07-16] MEDS: HYDROCODONE/APAP 5/325MG TABLET PO PRN (17:46)
[2023-07-16 20:00] VITALS: BP_SYST 105; BP_SYST 115; BP_DIAS 52; BP_DIAS 62; TEMP 97.7; O2SAT 95
[2023-07-17] VITALS: BP 125/55; TEMP 97.9; O2SAT 96
[2023-07-17 04:00] VITALS: BP 119/55; TEMP 97.6; O2SAT 100
[2023-07-17 07:00] VITALS: BP 115/63; TEMP 97.9; O2SAT 94
[2023-07-17 07:34] LABS: BASOPHILS % (AUTO) 0.6 % (0.0-2.0); EOSINOPHILS # (AUTO) 0.4 K/uL (0.0-0.7); EOSINOPHILS % (AUTO) 6.3 % (0.0-6.0); HEMATOCRIT 25 % (33-45); HEMOGLOBIN 8.5 g/dL (11.5-14.8); LYMPHOCYTES # (AUTO) 1.3 K/uL (0.8-4.8); LYMPHOCYTES % (AUTO) 20.2 % (20.0-44.0); MEAN CORPUSCULAR HEMOGLOBIN 32 PG (26.0-33.0); MEAN CORPUSCULAR HGB CONC 34 g/dl (31.0-36.0); MEAN CORPUSCULAR VOLUME 95 fL (82-100); MONOCYTES # (AUTO) 0.7 K/uL (0.1-1.30); MONOCYTES % (AUTO) 10.4 % (2.0-12.0); NEUTROPHILS # (AUTO) 4.1 K/uL (1.8-8.9); NEUTROPHILS % (AUTO) 62.5 % (43.0-81.0); PLATELET COUNT (AUTO) 283 K/uL (150-450); RED BLOOD CELL COUNT(AUTO) 2.66 MIL/uL (4.0-5.2); RED CELL DISTRIBUTION WIDTH 15.1 % (11.5-15.0); WHITE BLOOD COUNT (AUTO) 6.5 K/uL (4.3-11.0)
[2023-07-17 07:44] LABS: CALCIUM, SERUM 8.9 mg/dL (8.5-10.1); CARBON DIOXIDE 32 mmol/L (21-32); CHLORIDE 104 mmol/L (98-107); CREATININE 1.8 mg/dL (0.6-1.3); GLUCOSE 123 mg/dL (74-106); POTASSIUM 3.1 mmol/L (3.5-5.1); SODIUM SERUM 143 mmol/L (136-145); UREA NITROGEN, BLOOD 53 mg/dL (7-18)
[2023-07-17] MEDS: POTASSIUM CHLORIDE 20 MEQ TAB.PRT.SR PO SCH (09:23)
[2023-07-17 11:00] VITALS: BP 129/50; TEMP 98.1; O2SAT 96
[2023-07-17] MEDS ORDERED: ASPI-1169 PO (11:26)
[2023-07-17 16:00] VITALS: BP 113/54; TEMP 97.3; O2SAT 100
== END 2023-07-17 17:25 | DRG 280 ==
LOC: ER 18:48 → TELE 23:02
PROVIDERS: ADMIT Nurse Practitioner Acute Care; ATTEND Legal Medicine
PROC: 30233N1 Transfusion of Nonautologous Red Blood Cells into Peripheral Vein, Percutaneous Approach (ICD-10-PCS; principal; 2023-07-15)
DX: I13.0 Hypertensive heart and chronic kidney disease with heart failure and stage 1 through stage 4 chronic kidney disease, or unspecified chronic kidney disease (principal); I50.33 Acute on chronic diastolic (congestive) heart failure; I21.A1 Myocardial infarction type 2; N17.0 Acute kidney failure with tubular necrosis; Z20.822 Contact with and (suspected) exposure to COVID-19; H54.7 Unspecified visual loss; K21.9 Gastro-esophageal reflux disease without esophagitis; M19.90 Unspecified osteoarthritis, unspecified site; Z88.0 Allergy status to penicillin; Z68.36 Body mass index [BMI] 36.0-36.9, adult; E66.9 Obesity, unspecified; N18.9 Chronic kidney disease, unspecified; N13.9 Obstructive and reflux uropathy, unspecified; F39 Unspecified mood [affective] disorder; D63.1 Anemia in chronic kidney disease; Z79.899 Other long term (current) drug therapy
CPT/HCPCS: 36415; 71045-TC; 76770-TC; 80048-TC; 80053-TC; 80061-TC; 82728-TC; 83540-TC; 83735-TC; 83880; 83935-TC; 84100-TC; 84443-TC; 84484-TC; 85025-TC; 86850-TC; 87081-TC; 93307-TC; 94761-TC; 94799-TC; 97110-TC; 97116-TC; 97530-TC; A4223; C9113; G0378; J1644; J1940; J2916; J7030; J7050; P9016